=== PATIENT | female | born 2000 | race Caucasian/White ===

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

== ENCOUNTER 2019-05-04 17:15 | Emergency (ER) | payer OTHER ==
[~2019-05-04] VITALS: Ht 165.1 cm; Wt 95.5 kg
[~2019-05-04 17:15] MED LIST changes: +BENZ200C70 PO; +IBUP-1022 PO; +NORE0.353 PO
[2019-05-04] MEDS ORDERED: ZOFR4TAB16 PO (17:20)
[2019-05-04 18:23] LABS: BASO % 0.3 % (0.0-1.0); EOS # 0.1 10^3/uL (0.0-0.50); EOS % 1.5 % (0.0-3.0); HEMATOCRIT 43.5 % (36.0-47.0); HEMOGLOBIN 14.8 g/dl (12.0-15.5); LYMPH # 2.6 10^3/uL (1.5-6.5); LYMPH % 27.6 % (24.0-44.0); MEAN CORPUSCULAR HEMOGLOBIN 29.3 pg (27.0-33.0); MEAN CORPUSCULAR VOLUME 86.1 fl (80.0-96.0); MONO # 0.6 10^3/uL (0.0-0.8); MONO % 6.5 % (0.0-5.0); NEUTROPHILS % 63.8 % (36.0-66.0); PLATELET COUNT, AUTOMATED 298 10^3/uL (150-450); RED BLOOD COUNT 5.05 10^6/uL (4.00-5.40); WHITE BLOOD COUNT 9.4 10^3/uL (4.0-10.0)
[2019-05-04 18:47] LABS: ALBUMIN 4.3 GM/DL (3.2-5.2); ALT/SGPT 25 U/L (12-78); BILIRUBIN,DIRECT 0.1 MG/DL (0.0-0.2); BILIRUBIN,TOTAL 0.3 MG/DL (0.2-1.0); BLOOD UREA NITROGEN 13 MG/DL (7-18); CALCIUM LEVEL 9.4 MG/DL (8.5-10.1); CARBON DIOXIDE LEVEL 30 MEQ/L (21-32); CHLORIDE LEVEL 107 MEQ/L (98-107); GLUCOSE, FASTING 81 MG/DL (70-100); LIPASE 77 U/L (73-393); POTASSIUM SERUM 4.1 MEQ/L (3.5-5.1); SODIUM LEVEL 141 MEQ/L (136-145); TOTAL PROTEIN 7.6 GM/DL (6.4-8.2)
[2019-05-04 19:03] LABS: HCG, SERUM QUALITATIVE NEGATIVE (NEGATIVE)
--- NOTE | 2019-05-04 21:08 | REPVR ---
EXAM: US Abdomen Limited, Right Upper Quadrant EXAM DATE/TIME: 05/04/2019 8:26 PM CLINICAL HISTORY: 18 years old, female; Abdominal pain; Epigastric; Additional info: Ruq pain/vomiting TECHNIQUE: Imaging protocol: Real-time ultrasound of the abdomen with image documentation. Examination was focused on the right upper quadrant. COMPARISON: CT ABD PELVIS WITH CONTRAST 10/12/2018 11:12 PM FINDINGS: Liver: Normal. No masses. Gallbladder: Normal. No gallstones. There is no gallbladder wall thickening. Negative sonographic Arango's sign. Common bile duct: Common bile duct measures 3.4 mm Pancreas: Pancreas partially obscured by overlying valgus. Visualized segments are unremarkable. Right kidney: Right kidney measures 11.2 x 4.5 x 4.4 cm. IMPRESSION: Negative evaluation of the gallbladder. Electronically signed by: Tanner Pradhan On 05/04/2019 21:07:58 PM
[2019-05-04 21:42] VITALS: BP 133/82
[2019-05-04] MEDS ORDERED: REGL10TA6 PO (22:03)
[2019-05-04] MEDS ORDERED: METOCLOPRAMIDE 10 MG TAB PO ONE (22:15)
== END 2019-05-04 22:11 | disposition home or self-care (01) ==
LOC: M ED 17:15
DX: R10.11 Right upper quadrant pain (principal); R11.2 Nausea with vomiting, unspecified; K76.0 Fatty (change of) liver, not elsewhere classified; Z79.3 Long term (current) use of hormonal contraceptives

== ENCOUNTER 2019-07-15 01:41 | Emergency (ER) | payer OTHER ==
[~2019-07-15] VITALS: Ht 165.1 cm; Wt 95.5 kg
[~2019-07-15 01:41] MED LIST changes: +REGL10TA6 PO; +ZOFR4TAB16 PO
[2019-07-15] MEDS ORDERED: ACETAMINOPHEN 325 MG TAB As Ordered ONE (03:04)
[2019-07-15] MEDS ORDERED: ACETAMINOPHEN TAB 650MG DOSE (2X325MG) PO ONE (03:15)
[2019-07-15 05:56] VITALS: BP 135/71
--- NOTE | 2019-07-16 07:19 | REP ---
SACRUM AND COCCYX: Three views of the sacrum and coccyx are performed. There is no evidence of acute fracture, dislocation or intrinsic bone disease. IMPRESSION: No evidence of fracture or dislocation. Electronically Signed by Mac Eaton MD 07/16/2019 09:11 A
== END 2019-07-15 06:07 | disposition home or self-care (01) ==
LOC: M ED 01:41
DX: S30.0XXA Contusion of lower back and pelvis, initial encounter (principal); S90.812A Abrasion, left foot, initial encounter; V48.6XXA Car passenger injured in noncollision transport accident in traffic accident, initial encounter; Y92.410 Unspecified street and highway as the place of occurrence of the external cause; K76.0 Fatty (change of) liver, not elsewhere classified; F17.210 Nicotine dependence, cigarettes, uncomplicated; Z79.3 Long term (current) use of hormonal contraceptives

== ENCOUNTER 2020-09-16 15:46 | Emergency (ER) | payer OTHER, SELFPAY ==
[~2020-09-16] VITALS: Ht 162.6 cm; Wt 82.6 kg
[2020-09-16 15:47] VITALS: BP 124/79
[2020-09-16] MEDS ORDERED: AUGM875T28 PO (16:59)
== END 2020-09-16 17:27 | disposition home or self-care (01) ==
LOC: M ED 15:46
DX: J01.00 Acute maxillary sinusitis, unspecified (principal); Z20.828 Contact with and (suspected) exposure to other viral communicable diseases; F17.210 Nicotine dependence, cigarettes, uncomplicated

== ENCOUNTER 2021-01-18 08:28 | Emergency (ER) | payer BC, SELFPAY ==
[~2021-01-18] VITALS: Ht 162.6 cm; Wt 77.7 kg
[~2021-01-18 08:28] MED LIST changes: +AUGM875T28 PO
[2021-01-18] MEDS ORDERED: ONDANSETRON 4MG/2ML VIAL IV ONE (09:00)
[2021-01-18] MEDS ORDERED: NS 1,000 ML IV ONE (09:00)
[2021-01-18 09:39] LABS: BASO # 0.1 10^3/uL (0.0-0.2); BASO % 0.5 % (0.0-1.0); EOS # 0.3 10^3/uL (0.0-0.5); EOS % 1.6 % (0.0-3.0); HEMOGLOBIN 15.5 g/dl (12.0-15.5); LYMPH # 2.3 10^3/uL (1.5-5.0); LYMPH % 11.1 % (24.0-44.0); MEAN CORPUSCULAR HEMOGLOBIN 28.5 pg (27.0-33.0); MEAN CORPUSCULAR HGB CONC 33.7 g/dl (32.0-36.5); MEAN CORPUSCULAR VOLUME 84.6 fl (80.0-96.0); MONO # 0.8 10^3/uL (0.0-0.8); MONO % 3.8 % (2.0-8.0); NEUTROPHILS # 17.1 10^3/uL (1.5-8.5); NEUTROPHILS % 82.4 % (36.0-66.0); PLATELET COUNT, AUTOMATED 445 10^3/uL (150-450); RED BLOOD COUNT 5.44 10^6/uL (4.00-5.40); WHITE BLOOD COUNT 20.7 10^3/uL (4.0-10.0)
[2021-01-18 10:08] LABS: ALBUMIN 4.9 GM/DL (3.2-5.2); ALT/SGPT 21 U/L (12-78); AMYLASE 78 U/L (25-115); BILIRUBIN,DIRECT 0.2 MG/DL (0.0-0.2); BILIRUBIN,TOTAL 0.6 MG/DL (0.2-1.0); CK-MB VALUE MASS 3.2 NG/ML (<3.6); CPK CREATINE PHOSPHOKINASE 220 U/L (26-192); LIPASE 83 U/L (73-393); MB/CK RELATIVE INDEX 1.45 (< OR =4); TOTAL PROTEIN 8.2 GM/DL (6.4-8.2); TROPONIN I < 0.02 NG/ML (< 0.10)
[2021-01-18 10:12] LABS: RSV AMPLIFICATION NEGATIVE (NEGATIVE)
[2021-01-18 10:18] VITALS: O2SAT 100
--- NOTE | 2021-01-18 10:41 | REP ---
INDICATION: Abdominal Pain. COMPARISON: Comparison radiograph 07/15/2019.. TECHNIQUE: Four views including upright chest. FINDINGS: Upright chest radiograph is unremarkable. There is no evidence of infiltrate or free subdiaphragmatic air. Heart size is normal. Pulmonary vasculature is not increased. Pleural angles are sharp. Supine and erect views of the abdomen demonstrate a normal bowel gas pattern. The psoas margins and the flank stripes are intact. There is no evidence of mass, organomegaly, or pathologic calcification. IMPRESSION: Negative acute abdominal series. <Electronically signed by Mando Orozco > 01/18/21 [id number]
[2021-01-18 11:04] LABS: AMPHETAMINES LEVEL URINE NEGATIVE (NEGATIVE); BARBITURATES URINE NEGATIVE (NEGATIVE); BENZODIAZEPINES URINE NEGATIVE (NEGATIVE); CANNABINOIDS URINE POSITIVE (NEGATIVE); COCAINE METABOLITE URINE NEGATIVE (NEGATIVE); METHADONE URINE NEGATIVE (NEGATIVE); OPIATES URINE NEGATIVE (NEGATIVE); PHENCYCLIDINE URINE NEGATIVE (NEGATIVE)
[2021-01-18] MEDS ORDERED: GI COCKTAIL 50ML BTL(HYOSCYAMINE/MAALOX/LIDOCAINE VISCOUS)(1:3:1) PO ONE (11:45)
[2021-01-18] MEDS ORDERED: METOCLOPRAMIDE INJ 10MG/2ML VIAL (J2765 PER 1) IV ONE (12:05)
[2021-01-18 13:36] VITALS: BP 130/88
--- NOTE | 2021-01-19 19:48 | ECGEPIP ---
[facility] - ED Test Date: 2021-01-18 Pat Name: JEAN CARLOS FUNEZ Department: Room: - Gender: Female [employer]: MATT : 2000 Requested By: SIMON Villafana PA-C Order Number: [id number] Reading MD: Elissa Aguaoy Measurements Intervals [place] Rate: 53 P: 63 OK: 170 QRS: 50 QRSD: 84 T: 58 QT: 504 QTc: 472 Interpretive Statements Sinus bradycardia with marked sinus arrhythmia No prior Electronically Signed on 01-19-2021 19:48:37 EDT by Elissa Aguayo
== END 2021-01-18 13:41 | disposition home or self-care (01) ==
LOC: M ED 08:28
DX: F12.188 Cannabis abuse with other cannabis-induced disorder (principal); R11.10 Vomiting, unspecified; D72.829 Elevated white blood cell count, unspecified; F17.200 Nicotine dependence, unspecified, uncomplicated; K76.0 Fatty (change of) liver, not elsewhere classified
CPT/HCPCS: 74021; 80047; 80076; 80307; 81001; 82150; 82550; 82553; 83690; 84484; 84702; 85025; 87631; 93005; 96361; 96374; 96375; 99284; J2405; J2765

== ENCOUNTER → 2021-03-09 | Outpatient (REF) | payer BC ==
[2021-03-09 15:59] LABS: ALBUMIN 4.4 GM/DL (3.2-5.2); ALT/SGPT 15 U/L (12-78); BILIRUBIN,TOTAL 0.7 MG/DL (0.2-1.0); BLOOD UREA NITROGEN 11 MG/DL (7-18); CALCIUM LEVEL 9.2 MG/DL (8.5-10.1); CARBON DIOXIDE LEVEL 29 MEQ/L (21-32); CHLORIDE LEVEL 108 MEQ/L (98-107); CHOLESTEROL LEVEL 154 MG/DL (<200); CHOLESTEROL RISK RATIO 3.666 (<5); CREATININE FOR GFR 0.66 MG/DL (0.55-1.30); GLOMERULAR FILTRATION RATE > 60.0 (>60); GLUCOSE, FASTING 80 MG/DL (70-100); HDL CHOLESTEROL 42 MG/DL (>40); HEMOGLOBIN A1c 5.3 %; LDL CHOLESTEROL 77 MG/DL (<100); NON-HDL-C 112 MG/DL; POTASSIUM SERUM 4.4 MEQ/L (3.5-5.1); SODIUM LEVEL 141 MEQ/L (136-145); TOTAL PROTEIN 7.5 GM/DL (6.4-8.2); TRIGLYCERIDES LEVEL 177 MG/DL (<150)
[2021-03-09 16:07] LABS: TOTAL 25(OH) VITAMIN D 22.4 NG/ML (30.0-100.0)
== END ==
LOC: M SFHCPLAZ 12:42
PROVIDERS: ATTEND Nurse Practitioner Family
DX: K76.0 Fatty (change of) liver, not elsewhere classified (principal); Z83.3 Family history of diabetes mellitus; Z13.220 Encounter for screening for lipoid disorders; Z13.21 Encounter for screening for nutritional disorder

== ENCOUNTER → 2022-02-09 | Outpatient (CLI) | payer BC, SELFPAY | LOC: M RAD 08:43 | PROVIDERS: ATTEND Physician Assistant Medical | DX: R10.2 Pelvic and perineal pain (principal); N93.8 Other specified abnormal uterine and vaginal bleeding ==

== ENCOUNTER 2022-03-02 05:07 | Emergency (ER) | payer BC ==
[~2022-03-02] VITALS: Ht 162.6 cm; Wt 71.2 kg
[2022-03-02] MEDS ORDERED: ONDANSETRON 4MG/2ML VIAL IV ONE (06:00)
[2022-03-02] MEDS ORDERED: HALOPERIDOL 5MG/ML VIAL (J1630 PER 1) IV ONE (06:50)
[2022-03-02 07:10] LABS: BASO # 0.1 10^3/uL (0.0-0.2); BASO % 0.4 % (0.0-1.0); EOS # 0.1 10^3/uL (0.0-0.5); EOS % 0.2 % (0.0-3.0); HEMATOCRIT 51.2 % (36.0-47.0); HEMOGLOBIN 17.5 g/dl (12.0-15.5); LYMPH # 2.2 10^3/uL (1.5-5.0); LYMPH % 8.7 % (24.0-44.0); MEAN CORPUSCULAR HGB CONC 34.2 g/dl (32.0-36.5); MEAN CORPUSCULAR VOLUME 87.8 fl (80.0-96.0); MONO # 1.1 10^3/uL (0.0-0.8); MONO % 4.4 % (2.0-8.0); NEUTROPHILS # 21.5 10^3/uL (1.5-8.5); NEUTROPHILS % 85.7 % (36.0-66.0); PLATELET COUNT, AUTOMATED 496 10^3/uL (150-450); RED BLOOD COUNT 5.83 10^6/uL (4.00-5.40); WHITE BLOOD COUNT 25.1 10^3/uL (4.0-10.0)
[2022-03-02 07:15] LABS: ALBUMIN 4.6 GM/DL (3.2-5.2); ALT/SGPT 33 U/L (12-78); BILIRUBIN,DIRECT 0.2 MG/DL (0.0-0.2); BLOOD UREA NITROGEN 9 MG/DL (7-18); CALCIUM LEVEL 9.4 MG/DL (8.5-10.1); CARBON DIOXIDE LEVEL 21 MEQ/L (21-32); CHLORIDE LEVEL 108 MEQ/L (98-107); GLOMERULAR FILTRATION RATE > 60.0 (>60); GLUCOSE, FASTING 167 MG/DL (70-100); POTASSIUM SERUM 3.5 MEQ/L (3.5-5.1); SODIUM LEVEL 141 MEQ/L (136-145); TOTAL PROTEIN 8.2 GM/DL (6.4-8.2)
[2022-03-02 07:33] LABS: HCG, SERUM QUALITATIVE NEGATIVE (NEGATIVE)
[2022-03-02] MEDS ORDERED: NS 1,000 ML IV ONE ×2 (07:45)
[2022-03-02] MEDS ORDERED: MAALOX 30 ML SUSP *UDC PO ONE (08:05)
[2022-03-02] MEDS ORDERED: ONDA-83 PO (08:24)
[2022-03-02 08:45] VITALS: BP 124/85
== END 2022-03-02 09:04 | disposition home or self-care (01) ==
LOC: M ED 05:07
DX: R19.7 Diarrhea, unspecified (principal); R11.10 Vomiting, unspecified; L55.9 Sunburn, unspecified
CPT/HCPCS: 80048; 80076; 84702; 84703; 85025; 87486; 87581; 87633; 87798; 96361; 96374; 96375; 99284; J1630; J2405

== ENCOUNTER 2022-04-20 14:57 | Emergency (ER) | payer BC ==
[~2022-04-20] VITALS: Ht 165.1 cm; Wt 72.7 kg
[2022-04-20 14:57] VITALS: BP 131/97
[~2022-04-20 14:57] MED LIST changes: +ONDA-83 PO
== END 2022-04-20 16:45 | disposition left against medical advice (07) ==
LOC: M ED 14:57
DX: Z53.21 Procedure and treatment not carried out due to patient leaving prior to being seen by health care provider (principal)

== ENCOUNTER → 2022-08-16 | Outpatient (CLI) | payer BC | LOC: M WHC 06:39 | PROVIDERS: ATTEND Physician Assistant Medical | DX: R10.2 Pelvic and perineal pain (principal); N94.12 Deep dyspareunia ==

== ENCOUNTER 2022-10-13 11:18 | Emergency (ER) | payer BC ==
[~2022-10-13] VITALS: Ht 162.6 cm; Wt 72.3 kg
[2022-10-13] MEDS ORDERED: ONDA-84 PO (11:25)
[2022-10-13] MEDS ORDERED: NS 1,000 ML IV ONE (12:00)
[2022-10-13] MEDS ORDERED: METOCLOPRAMIDE INJ 10MG/2ML VIAL IV ONE (12:00)
[2022-10-13] MEDS ORDERED: PROMETHAZINE 25MG/ML 1ML VIAL IV ONE (12:25)
[2022-10-13 12:28] LABS: BASO # 0.1 10^3/uL (0.0-0.2); BASO % 0.3 % (0.0-1.0); EOS # 0.1 10^3/uL (0.0-0.5); EOS % 0.6 % (0.0-3.0); HEMATOCRIT 43.2 % (36.0-47.0); HEMOGLOBIN 14.8 g/dl (12.0-15.5); LYMPH # 2.7 10^3/uL (1.5-5.0); LYMPH % 15.9 % (24.0-44.0); MEAN CORPUSCULAR HEMOGLOBIN 29.7 pg (27.0-33.0); MEAN CORPUSCULAR HGB CONC 34.3 g/dl (32.0-36.5); MEAN CORPUSCULAR VOLUME 86.7 fl (80.0-96.0); MONO # 0.7 10^3/uL (0.0-0.8); NEUTROPHILS # 13.5 10^3/uL (1.5-8.5); NEUTROPHILS % 78.8 % (36.0-66.0); PLATELET COUNT, AUTOMATED 379 10^3/uL (150-450); RED BLOOD COUNT 4.98 10^6/uL (4.00-5.40); WHITE BLOOD COUNT 17.1 10^3/uL (4.0-10.0)
[2022-10-13 12:48] LABS: LIPASE 25 U/L (12-53)
[2022-10-13 12:49] LABS: BILIRUBIN,DIRECT 0.3 MG/DL (<0.4)
[2022-10-13 12:50] LABS: ALBUMIN 4.8 G/DL (3.2-5.2); ALKALINE PHOSPHATASE 54 U/L (46-116); ALT/SGPT 23 U/L (7.0-40); AST/SGOT 26 U/L (<34); BILIRUBIN,TOTAL 0.9 MG/DL (0.3-1.2); BLOOD UREA NITROGEN 7 MG/DL (9-23); CALCIUM LEVEL 10.1 MG/DL (8.5-10.1); CARBON DIOXIDE LEVEL 19 MMOL/L (20-31); CHLORIDE LEVEL 104 MMOL/L (98-107); CREATININE FOR GFR 0.55 MG/DL (0.55-1.30); GLOMERULAR FILTRATION RATE > 60.0 (>60); GLUCOSE, FASTING 130 MG/DL (60-100); SODIUM LEVEL 140 MMOL/L (136-145); TOTAL PROTEIN 7.4 G/DL (5.7-8.2)
[2022-10-13 13:12] LABS: HCG, SERUM QUANTITATIVE 89217.2 MIU/ML (<4.2)
[2022-10-13] MEDS ORDERED: ONDANSETRON 4MG 2ML VIAL IV ONE (14:25)
[2022-10-13] MEDS ORDERED: CALCIUM CARBONATE 500 MG CHEW U/D PO ONE (16:00)
[2022-10-13] MEDS ORDERED: PROM1SUP2 PR (16:09)
[2022-10-13 16:31] VITALS: BP 121/70
[2022-10-14] MEDS ORDERED: DICL10TA PO (13:41)
== END 2022-10-13 16:33 | disposition home or self-care (01) ==
LOC: M ED 11:18
DX: O26.91 Pregnancy related conditions, unspecified, first trimester (principal); O21.8 Other vomiting complicating pregnancy; O99.321 Drug use complicating pregnancy, first trimester; O99.331 Smoking (tobacco) complicating pregnancy, first trimester; Z3A.01 Less than 8 weeks gestation of pregnancy
CPT/HCPCS: 76801; 76817; 80048; 80076; 83690; 84702; 85025; 86850; 86900; 86901; 87428; 96361; 96374; 96375; 99284; J2405; J2550; J2765

== ENCOUNTER 2022-10-14 05:15 | Emergency (ER) | payer BC ==
[~2022-10-14] VITALS: Ht 162.6 cm; Wt 69.8 kg
[~2022-10-14 05:15] MED LIST changes: +ONDA-84 PO; +PROM1SUP2 PR
[2022-10-14 06:01] LABS: BASO # 0.1 10^3/uL (0.0-0.2); BASO % 0.2 % (0.0-1.0); HEMATOCRIT 40.4 % (36.0-47.0); HEMOGLOBIN 14.4 g/dl (12.0-15.5); LYMPH # 1.7 10^3/uL (1.5-5.0); LYMPH % 5.8 % (24.0-44.0); MEAN CORPUSCULAR HGB CONC 35.6 g/dl (32.0-36.5); MEAN CORPUSCULAR VOLUME 84.2 fl (80.0-96.0); MONO % 3.2 % (2.0-8.0); PLATELET COUNT, AUTOMATED 389 10^3/uL (150-450)
[2022-10-14 06:46] LABS: LIPASE 24 U/L (12-53)
[2022-10-14 06:48] LABS: BILIRUBIN,DIRECT 0.4 MG/DL (<0.4)
[2022-10-14 07:04] LABS: ALBUMIN 5.1 G/DL (3.2-5.2); ALKALINE PHOSPHATASE 55 U/L (46-116); ALT/SGPT 23 U/L (7.0-40); AST/SGOT 27 U/L (<34); BLOOD UREA NITROGEN 8 MG/DL (9-23); CALCIUM LEVEL 10.2 MG/DL (8.5-10.1); CARBON DIOXIDE LEVEL 16 MMOL/L (20-31); CHLORIDE LEVEL 102 MMOL/L (98-107); CREATININE FOR GFR 0.52 MG/DL (0.55-1.30); GLOMERULAR FILTRATION RATE > 60.0 (>60); GLUCOSE, FASTING 120 MG/DL (60-100); HCG, SERUM QUANTITATIVE 98034.4 MIU/ML (<4.2); POTASSIUM SERUM 3.6 MMOL/L (3.5-5.1); SODIUM LEVEL 137 MMOL/L (136-145); TOTAL PROTEIN 7.8 G/DL (5.7-8.2)
[2022-10-14] MEDS ORDERED: NS 1,000 ML IV ONE ×2 (07:40→11:35)
[2022-10-14] MEDS ORDERED: ACETAMINOPHEN 1000MG 100ML IV BAG IV ONE (07:40)
[2022-10-14] MEDS ORDERED: PROMETHAZINE 25MG/ML 1ML VIAL IV ONE (07:40)
[2022-10-14] MEDS ORDERED: ONDANSETRON 4MG 2ML VIAL IV ONE (09:25)
[2022-10-14] MEDS ORDERED: FAMOTIDINE 20MG/2ML VIAL IVP ONE (09:40)
[2022-10-14] MEDS ORDERED: GI COCKTAIL 50ML BTL(HYOSCYAMINE/MAALOX/LIDOCAINE VISCOUS)(1:3:1) PO ONE (09:40)
[2022-10-14 11:14] LABS: AMPHETAMINES LEVEL URINE NEGATIVE (NEGATIVE); BARBITURATES URINE NEGATIVE (NEGATIVE); BENZODIAZEPINES URINE NEGATIVE (NEGATIVE); COCAINE METABOLITE URINE NEGATIVE (NEGATIVE); METHADONE URINE NEGATIVE (NEGATIVE); OPIATES URINE NEGATIVE (NEGATIVE); PHENCYCLIDINE URINE NEGATIVE (NEGATIVE)
[2022-10-14 11:17] LABS: CANNABINOIDS URINE POSITIVE (NEGATIVE)
[2022-10-14] MEDS ORDERED: PYRIDOXINE 50 MG TAB PO ONE (11:35)
[2022-10-14] MEDS ORDERED: DICL10TA PO (13:41)
[2022-10-14 13:56] VITALS: BP 108/58
[2022-10-15] MEDS ORDERED: PREN1CHW PO (16:53)
== END 2022-10-14 15:14 | disposition home or self-care (01) ==
LOC: M ED 05:15
DX: O21.9 Vomiting of pregnancy, unspecified (principal); O99.321 Drug use complicating pregnancy, first trimester; O26.611 Liver and biliary tract disorders in pregnancy, first trimester; Z3A.08 8 weeks gestation of pregnancy
CPT/HCPCS: 74181; 80048; 80076; 80307; 81002; 83605; 83690; 84702; 85025; 87880; 99284; J0131; J2405; J2550

== ENCOUNTER 2022-10-15 09:09 | Inpatient (IN) | payer BC ==
[~2022-10-15] VITALS: Ht 162.6 cm; Wt 71.3 kg
[~2022-10-15 09:09] MED LIST changes: +DICL10TA PO
[2022-10-15] MEDS ORDERED: GI COCKTAIL 50ML BTL(HYOSCYAMINE/MAALOX/LIDOCAINE VISCOUS)(1:3:1) PO ONE (11:30)
[2022-10-15] MEDS ORDERED: NS 1,000 ML IV ONE (11:30)
[2022-10-15] MEDS ORDERED: PROMETHAZINE 25MG/ML 1ML VIAL IV ONE (11:30)
[2022-10-15] MEDS ORDERED: OMEPRAZOLE 20MG CAP PO ONE (11:35)
[2022-10-15 12:00] LABS: BASO % 0.1 % (0.0-1.0); EOS # 0.1 10^3/uL (0.0-0.5); EOS % 0.4 % (0.0-3.0); HEMATOCRIT 39.2 % (36.0-47.0); HEMOGLOBIN 13.3 g/dl (12.0-15.5); LYMPH # 1.7 10^3/uL (1.5-5.0); LYMPH % 10.6 % (24.0-44.0); MEAN CORPUSCULAR HEMOGLOBIN 29.6 pg (27.0-33.0); MEAN CORPUSCULAR HGB CONC 33.9 g/dl (32.0-36.5); MEAN CORPUSCULAR VOLUME 87.3 fl (80.0-96.0); MONO % 6.2 % (2.0-8.0); NEUTROPHILS # 13.5 10^3/uL (1.5-8.5); NEUTROPHILS % 82.1 % (36.0-66.0); PLATELET COUNT, AUTOMATED 232 10^3/uL (150-450); RED BLOOD COUNT 4.49 10^6/uL (4.00-5.40); WHITE BLOOD COUNT 16.4 10^3/uL (4.0-10.0)
[2022-10-15 14:50] VITALS: BP 121/72
[2022-10-15] MEDS ORDERED: MULTIVITAMIN -ADULT INJECTION 10 ML, THIAMINE INJection 100 MG, FOLIC ACID 1 MG in NS 1... IV ONE (14:55)
[2022-10-15] MEDS ORDERED: ONDANSETRON 4MG 2ML VIAL IV ONE (16:05)
[2022-10-15 16:35] LABS: RSV AMPLIFICATION NEGATIVE (NEGATIVE)
[2022-10-15] MEDS ORDERED: PREN1CHW PO (16:53)
[2022-10-15] MEDS ORDERED: HOME MED LIST COMPLETE! XX SCH (17:00)
[2022-10-15] MEDS: METOCLOPRAMIDE INJ 10MG/2ML VIAL IV SCH (17:20)
[2022-10-15] MEDS: diphenhydrAMINE 50MG/ML VIAL IV SCH (17:49)
[2022-10-15 17:50] VITALS: BP 134/82
[2022-10-15] MEDS: ONDANSETRON 4MG 2ML VIAL IV PRN (17:50)
[2022-10-15] MEDS: DOCUSATE SODIUM 100MG CAPSULE PO SCH (21:00)
[2022-10-15] MEDS: PROMETHAZINE 25MG/ML 1ML VIAL IV PRN (22:21)
[2022-10-16] MEDS: diphenhydrAMINE 50MG/ML VIAL IV SCH ×3 (00:36→13:30)
[2022-10-16] MEDS: ONDANSETRON 4MG 2ML VIAL IV PRN ×2 (00:36→06:28)
[2022-10-16] MEDS: NS 1,000 ML IV SCH ×2 (02:27→11:30)
[2022-10-16] MEDS: METOCLOPRAMIDE INJ 10MG/2ML VIAL IV SCH ×3 (02:27→10:14)
[2022-10-16 06:00] VITALS: BP 126/71
[2022-10-16] MEDS: PROMETHAZINE 25MG/ML 1ML VIAL IV PRN ×2 (06:29→13:30)
[2022-10-16] MEDS ORDERED: CALCIUM CARBONATE 500 MG CHEW U/D PO PRN (08:05)
[2022-10-16] MEDS ORDERED: OMEPRAZOLE 20MG CAP PO SCH (09:00)
[2022-10-16] MEDS: KCL 10MEQ/100ML SWI (KRUN) 10 MEQ in IV 1 EA IV SCH ×2 (10:09→10:10)
[2022-10-16] MEDS: DOCUSATE SODIUM 100MG CAPSULE PO SCH (10:15)
[2022-10-16 13:15] LABS: FREE T3 3.2 PG/ML (2.3-4.2); FREE T4 1.47 NG/DL (0.89-1.76); THYROID STIMULATING HORMONE 0.265 uIU/ML (0.55-4.78)
[2022-10-16 13:18] LABS: BLOOD UREA NITROGEN < 5 MG/DL (9-23); CALCIUM LEVEL 8.1 MG/DL (8.5-10.1); CARBON DIOXIDE LEVEL 17 MMOL/L (20-31); CHLORIDE LEVEL 105 MMOL/L (98-107); CREATININE FOR GFR 0.41 MG/DL (0.55-1.30); GLOMERULAR FILTRATION RATE > 60.0 (>60); GLUCOSE, FASTING 88 MG/DL (60-100); POTASSIUM SERUM 3.2 MMOL/L (3.5-5.1); SODIUM LEVEL 135 MMOL/L (136-145)
[2022-10-16 14:30] VITALS: BP 144/99
[2022-10-16] MEDS ORDERED: NEXI40CA PO (15:49)
== END 2022-10-16 17:00 | disposition home or self-care (01) | DRG 566 ==
LOC: M ED 09:09 → M ED INP 15:35 → ENRESERV 16:59 → M OBS 17:00
PROVIDERS: ADMIT Advanced Practice Midwife; ATTEND Advanced Practice Midwife
DX: O21.0 Mild hyperemesis gravidarum (principal); K21.9 Gastro-esophageal reflux disease without esophagitis; Z3A.08 8 weeks gestation of pregnancy; O99.611 Diseases of the digestive system complicating pregnancy, first trimester

== ENCOUNTER → 2022-10-20 | Outpatient (CLI) | payer BC ==
[~2022-10-20] MED LIST changes: +NEXI40CA PO; +PREN1CHW PO
[2022-10-20 17:21] LABS: HEMATOCRIT 42.4 % (36.0-47.0); HEMOGLOBIN 14.6 g/dl (12.0-15.5); MEAN CORPUSCULAR HEMOGLOBIN 30.3 pg (27.0-33.0); MEAN CORPUSCULAR HGB CONC 34.4 g/dl (32.0-36.5); PLATELET COUNT, AUTOMATED 284 10^3/uL (150-450); RED BLOOD COUNT 4.82 10^6/uL (4.00-5.40); WHITE BLOOD COUNT 11.6 10^3/uL (4.0-10.0)
[2022-10-20 18:15] LABS: HIV 1&2 SCREEN CENTAUR NEGATIVE (NEGATIVE)
[2022-10-20 18:22] LABS: HEPATITIS C VIRUS ABY INDEX 0.1 INDEX (<0.8)
[2022-10-20 18:42] LABS: GC DNA AMPLIFICATION NEGATIVE (NEGATIVE)
== END ==
LOC: M PLALAB 16:03
PROVIDERS: ATTEND Advanced Practice Midwife
DX: Z36.89 Encounter for other specified antenatal screening (principal)

== ENCOUNTER 2022-11-09 08:29 | Inpatient (IN) | payer BC, MEDICAID, SELFPAY ==
[~2022-11-09] VITALS: Ht 162.6 cm; Wt 71.6 kg
[2022-11-09 10:46] LABS: BASO % 0.2 % (0.0-1.0); EOS % 0.1 % (0.0-3.0); HEMATOCRIT 41.4 % (36.0-47.0); HEMOGLOBIN 14.1 g/dl (12.0-15.5); LYMPH # 1.6 10^3/uL (1.5-5.0); LYMPH % 6.9 % (24.0-44.0); MEAN CORPUSCULAR HEMOGLOBIN 29.7 pg (27.0-33.0); MEAN CORPUSCULAR HGB CONC 34.1 g/dl (32.0-36.5); MEAN CORPUSCULAR VOLUME 87.2 fl (80.0-96.0); MONO # 0.5 10^3/uL (0.0-0.8); MONO % 2.3 % (2.0-8.0); NEUTROPHILS # 20.5 10^3/uL (1.5-8.5); NEUTROPHILS % 89.9 % (36.0-66.0); PLATELET COUNT, AUTOMATED 405 10^3/uL (150-450); RED BLOOD COUNT 4.75 10^6/uL (4.00-5.40); WHITE BLOOD COUNT 22.8 10^3/uL (4.0-10.0)
[2022-11-09] MEDS ORDERED: PROMETHAZINE 25MG/ML 1ML VIAL IV ONE (11:15)
[2022-11-09] MEDS ORDERED: MULTIVITAMIN -ADULT INJECTION 10 ML, THIAMINE INJection 100 MG, FOLIC ACID 1 MG in NS 1... IV ONE (11:15)
[2022-11-09] MEDS ORDERED: NS 500 ML IV ONE ×2 (11:15→12:45)
[2022-11-09 11:17] LABS: BILIRUBIN,DIRECT 0.2 MG/DL (<0.4)
[2022-11-09 11:19] LABS: HCG, SERUM QUALITATIVE POSITIVE (NEGATIVE)
[2022-11-09 11:21] LABS: ALBUMIN 4.5 G/DL (3.2-5.2); ALKALINE PHOSPHATASE 36 U/L (46-116); ALT/SGPT 22 U/L (7.0-40); AST/SGOT 60 U/L (<34); BILIRUBIN,TOTAL 0.8 MG/DL (0.3-1.2); BLOOD UREA NITROGEN 9 MG/DL (9-23); CALCIUM LEVEL 9.7 MG/DL (8.5-10.1); CARBON DIOXIDE LEVEL 20 MMOL/L (20-31); CHLORIDE LEVEL 102 MMOL/L (98-107); CREATININE FOR GFR 0.55 MG/DL (0.55-1.30); GLOMERULAR FILTRATION RATE > 60.0 (>60); GLUCOSE, FASTING 176 MG/DL (60-100); LIPASE 39 U/L (12-53); POTASSIUM SERUM 5.6 MMOL/L (3.5-5.1); SODIUM LEVEL 138 MMOL/L (136-145); TOTAL PROTEIN 7.4 G/DL (5.7-8.2)
[2022-11-09] MEDS ORDERED: PROCHLORPERAZINE 25MG SUPP PR ONE ×2 (12:55→16:05)
[2022-11-09] MEDS ORDERED: ONDANSETRON 4MG ORAL DISINTEGRATING TAB PO ONE (13:05)
[2022-11-09 13:19] LABS: RSV AMPLIFICATION NEGATIVE (NEGATIVE)
[2022-11-09 13:46] LABS: AMPHETAMINES LEVEL URINE NEGATIVE (NEGATIVE); BARBITURATES URINE NEGATIVE (NEGATIVE); BENZODIAZEPINES URINE NEGATIVE (NEGATIVE); COCAINE METABOLITE URINE NEGATIVE (NEGATIVE); PHENCYCLIDINE URINE NEGATIVE (NEGATIVE)
[2022-11-09 13:47] LABS: METHADONE URINE NEGATIVE (NEGATIVE); OPIATES URINE NEGATIVE (NEGATIVE)
[2022-11-09 13:51] LABS: CANNABINOIDS URINE POSITIVE (NEGATIVE)
[2022-11-09 14:33] LABS: HEMOGLOBIN A1c 4.5 % (4.0-6.0)
[2022-11-09 14:55] LABS: MAGNESIUM LEVEL 1.7 MG/DL (1.8-2.4)
[2022-11-09] MEDS ORDERED: PROM25SU3 PR (15:57)
[2022-11-09] MEDS: LR 1,000 ML IV SCH (17:20)
[2022-11-09] MEDS: PROMETHAZINE 25MG/ML 1ML VIAL IV SCH ×2 (17:20→22:39)
[2022-11-09] MEDS ORDERED: ACET-897 PO (18:47)
[2022-11-09] MEDS ORDERED: ONDA4TAB6 PO (18:47)
[2022-11-09] MEDS ORDERED: HOME MED LIST COMPLETE! XX SCH (18:50)
[2022-11-09] MEDS: ONDANSETRON 4MG 2ML VIAL IV SCH (19:43)
[2022-11-09 20:10] VITALS: BP 132/78
[2022-11-09] MEDS: CALCIUM CARBONATE 500 MG CHEW U/D PO PRN (20:49)
[2022-11-10] VITALS: BP 140/82
[2022-11-10] MEDS: ONDANSETRON 4MG 2ML VIAL IV SCH ×4 (01:54→19:49)
[2022-11-10] MEDS: LR 1,000 ML IV SCH ×3 (01:55→17:13)
[2022-11-10 04:00] VITALS: BP 132/84
[2022-11-10] MEDS: PROMETHAZINE 25MG/ML 1ML VIAL IV SCH ×4 (04:35→22:33)
[2022-11-10 08:00] VITALS: BP 135/82
[2022-11-10] MEDS: CALCIUM CARBONATE 500 MG CHEW U/D PO PRN ×3 (08:09→22:05)
[2022-11-10 12:00] VITALS: BP 115/57
[2022-11-10 16:00] VITALS: BP 116/56
[2022-11-10 20:00] VITALS: BP 122/69
[2022-11-11] MEDS: ONDANSETRON 4MG 2ML VIAL IV SCH ×2 (01:26→08:11)
[2022-11-11] MEDS: LR 1,000 ML IV SCH ×3 (01:26→16:56)
[2022-11-11] MEDS: CALCIUM CARBONATE 500 MG CHEW U/D PO PRN ×2 (03:20→12:59)
[2022-11-11 04:00] VITALS: BP 135/86
[2022-11-11] MEDS: PROMETHAZINE 25MG/ML 1ML VIAL IV SCH ×4 (04:57→23:15)
[2022-11-11 08:00] VITALS: BP 125/79
[2022-11-11] MEDS ORDERED: SCOPOLAMINE 1MG TRANSDERMAL PATCH TOP SCH (09:00)
[2022-11-11] MEDS: METOCLOPRAMIDE INJ 10MG/2ML VIAL IV SCH ×2 (13:39→22:06)
[2022-11-11] MEDS ORDERED: PANTOPRAZOLE 20 MG TAB PO ONE (14:00)
[2022-11-11 14:28] LABS: HEMATOCRIT 38.9 % (36.0-47.0); HEMOGLOBIN 13.5 g/dl (12.0-15.5); MEAN CORPUSCULAR HEMOGLOBIN 30.1 pg (27.0-33.0); MEAN CORPUSCULAR HGB CONC 34.7 g/dl (32.0-36.5); MEAN CORPUSCULAR VOLUME 86.8 fl (80.0-96.0); PLATELET COUNT, AUTOMATED 254 10^3/uL (150-450); RED BLOOD COUNT 4.48 10^6/uL (4.00-5.40); WHITE BLOOD COUNT 11.5 10^3/uL (4.0-10.0)
[2022-11-11 14:57] LABS: ACETONE/KETONE 1.5 MMOL/L (0.02-0.27)
[2022-11-11 15:27] LABS: ALBUMIN 3.9 G/DL (3.2-5.2); ALKALINE PHOSPHATASE 39 U/L (46-116); ALT/SGPT 19 U/L (7.0-40); AST/SGOT 19 U/L (<34); BILIRUBIN,TOTAL 0.9 MG/DL (0.3-1.2); BLOOD UREA NITROGEN < 5 MG/DL (9-23); CALCIUM LEVEL 9.3 MG/DL (8.5-10.1); CARBON DIOXIDE LEVEL 20 MMOL/L (20-31); CHLORIDE LEVEL 105 MMOL/L (98-107); CREATININE FOR GFR 0.43 MG/DL (0.55-1.30); GLOMERULAR FILTRATION RATE > 60.0 (>60); GLUCOSE, FASTING 77 MG/DL (60-100); POTASSIUM SERUM 3.1 MMOL/L (3.5-5.1); SODIUM LEVEL 139 MMOL/L (136-145); TOTAL PROTEIN 6.4 G/DL (5.7-8.2)
[2022-11-11 17:00] VITALS: BP 104/62
[2022-11-11 20:00] VITALS: BP 115/56
[2022-11-12 04:00] VITALS: BP 117/73
[2022-11-12] MEDS: ONDANSETRON 4MG 2ML VIAL IV PRN ×2 (04:02→12:04)
[2022-11-12] MEDS: LR 1,000 ML IV SCH ×3 (04:04→17:00)
[2022-11-12] MEDS: PROMETHAZINE 25MG/ML 1ML VIAL IV SCH ×4 (05:02→22:14)
[2022-11-12] MEDS: METOCLOPRAMIDE INJ 10MG/2ML VIAL IV SCH ×2 (06:02→14:13)
[2022-11-12 08:00] VITALS: BP 129/89
[2022-11-12] MEDS: CALCIUM CARBONATE 500 MG CHEW U/D PO PRN (09:23)
[2022-11-12 13:00] VITALS: BP 134/69
[2022-11-12 14:34] LABS: LIPASE 21 U/L (12-53)
[2022-11-12 14:45] LABS: ALBUMIN 3.6 G/DL (3.2-5.2); ALKALINE PHOSPHATASE 35 U/L (46-116); ALT/SGPT 47 U/L (7.0-40); AST/SGOT 33 U/L (<34); BILIRUBIN,TOTAL 1.2 MG/DL (0.3-1.2); BLOOD UREA NITROGEN < 5 MG/DL (9-23); CALCIUM LEVEL 8.4 MG/DL (8.5-10.1); CARBON DIOXIDE LEVEL 20 MMOL/L (20-31); CHLORIDE LEVEL 105 MMOL/L (98-107); CREATININE FOR GFR 0.43 MG/DL (0.55-1.30); GLOMERULAR FILTRATION RATE > 60.0 (>60); GLUCOSE, FASTING 79 MG/DL (60-100); POTASSIUM SERUM 2.9 MMOL/L (3.5-5.1); SODIUM LEVEL 138 MMOL/L (136-145); TOTAL PROTEIN 5.8 G/DL (5.7-8.2)
[2022-11-12] MEDS: KCL 10MEQ/100ML SWI (KRUN) 10 MEQ in IV 1 EA IV SCH ×4 (15:29→20:46)
[2022-11-12] MEDS ORDERED: PROCHLORPERAZINE 10MG 2ML VIAL IV PRN (16:55)
[2022-11-12] MEDS ORDERED: MULTIVITAMIN -ADULT INJECTION 10 ML, THIAMINE INJection 100 MG, FOLIC ACID 1 MG in NS 1... IV ONE (17:00)
[2022-11-12] MEDS: diphenhydrAMINE 50MG/ML VIAL IV SCH ×2 (17:05→20:46)
[2022-11-12 17:30] VITALS: BP 110/54
[2022-11-12 20:00] VITALS: BP 99/56
[2022-11-12] MEDS ORDERED: PANTOPRAZOLE 40MG VIAL IV SCH (21:00)
[2022-11-13 00:28] LABS: ALBUMIN 3.2 G/DL (3.2-5.2); ALKALINE PHOSPHATASE 33 U/L (46-116); ALT/SGPT 71 U/L (7.0-40); AST/SGOT 57 U/L (<34); BLOOD UREA NITROGEN < 5 MG/DL (9-23); CALCIUM LEVEL 8.5 MG/DL (8.5-10.1); CARBON DIOXIDE LEVEL 23 MMOL/L (20-31); CHLORIDE LEVEL 106 MMOL/L (98-107); CREATININE FOR GFR 0.48 MG/DL (0.55-1.30); GLOMERULAR FILTRATION RATE > 60.0 (>60); GLUCOSE, FASTING 81 MG/DL (60-100); POTASSIUM SERUM 3.7 MMOL/L (3.5-5.1); SODIUM LEVEL 138 MMOL/L (136-145); TOTAL PROTEIN 5.6 G/DL (5.7-8.2)
[2022-11-13] MEDS: diphenhydrAMINE 50MG/ML VIAL IV SCH ×4 (00:39→12:32)
[2022-11-13] MEDS ORDERED: PROMETHAZINE 25MG/ML 1ML VIAL IV PRN (01:50)
[2022-11-13 04:16] VITALS: BP 116/58
[2022-11-13] MEDS: ONDANSETRON 4MG 2ML VIAL IV PRN (05:04)
[2022-11-13] MEDS: LR 1,000 ML IV SCH (05:41)
[2022-11-13 08:00] VITALS: BP_SYST 115; BP_SYST 117; BP_DIAS 54; BP_DIAS 55
[2022-11-13 12:00] VITALS: BP 113/59
[2022-11-13] MEDS ORDERED: TRAN1DIS4 TOP (14:02)
== END 2022-11-13 14:34 | disposition home or self-care (01) | DRG 566 ==
LOC: M ED 08:29 → M ED INP 17:00 → M PED 20:10 → OBSVTOIN 11-11 17:23
PROVIDERS: ADMIT Obstetrics & Gynecology; ATTEND Specialist
DX: O21.0 Mild hyperemesis gravidarum (principal); E87.6 Hypokalemia; Z3A.12 12 weeks gestation of pregnancy; O99.281 Endocrine, nutritional and metabolic diseases complicating pregnancy, first trimester

== ENCOUNTER → 2022-11-18 | Outpatient (CLI) | payer MEDICAID ==
[~2022-11-18] MED LIST changes: +ACET-897 PO; +ONDA4TAB6 PO; +PROM25SU3 PR; +TRAN1DIS4 TOP
== END ==
LOC: M PLALAB 08:54
PROVIDERS: ATTEND Advanced Practice Midwife
DX: Z34.81 Encounter for supervision of other normal pregnancy, first trimester (principal); Z84.81 Family history of carrier of genetic disease

== ENCOUNTER → 2023-01-07 | Outpatient (CLI) | payer MEDICAID, OTHER | LOC: M WHC 11:52 | PROVIDERS: ATTEND Advanced Practice Midwife | DX: Z34.01 Encounter for supervision of normal first pregnancy, first trimester (principal); Z3A.20 20 weeks gestation of pregnancy ==

== ENCOUNTER 2023-01-22 10:01 | Outpatient (CLI) | payer MEDICAID, OTHER ==
[~2023-01-22] VITALS: Ht 165.1 cm; Wt 77.0 kg
[2023-01-22] VITALS (7 sets, daily range): BP systolic 111–159; BP diastolic 57–103
[2023-01-22] MEDS ORDERED: LACTATED RINGER'S 1000 ML IV ONE (10:15)
[2023-01-22] MEDS: ONDANSETRON 4MG 2ML VIAL IV PRN ×4 (10:41→23:19)
[2023-01-22] MEDS: PROMETHAZINE 25MG/ML 1ML VIAL IV PRN ×3 (10:41→22:41)
[2023-01-22 10:53] LABS: HEMATOCRIT 36.1 % (36.0-47.0); HEMOGLOBIN 12.7 g/dl (12.0-15.5); MEAN CORPUSCULAR HEMOGLOBIN 30.7 pg (27.0-33.0); MEAN CORPUSCULAR HGB CONC 35.2 g/dl (32.0-36.5); MEAN CORPUSCULAR VOLUME 87.2 fl (80.0-96.0); PLATELET COUNT, AUTOMATED 280 10^3/uL (150-450); RED BLOOD COUNT 4.14 10^6/uL (4.00-5.40); WHITE BLOOD COUNT 20.1 10^3/uL (4.0-10.0)
[2023-01-22] MEDS ORDERED: COLA100C5 PO (11:04)
[2023-01-22] MEDS ORDERED: BENA25CA4 PO (11:04)
[2023-01-22] MEDS ORDERED: PROT20TA11 PO (11:04)
[2023-01-22] MEDS ORDERED: MIRA1POW3 PO (11:04)
[2023-01-22] MEDS ORDERED: TUMS500C PO (11:08)
[2023-01-22] MEDS ORDERED: HOME MED LIST COMPLETE! XX SCH (11:10)
[2023-01-22 11:19] LABS: ALBUMIN 3.6 G/DL (3.2-5.2); ALKALINE PHOSPHATASE 47 U/L (46-116); ALT/SGPT 29 U/L (7.0-40); AST/SGOT 34 U/L (<34); BILIRUBIN,TOTAL 0.5 MG/DL (0.3-1.2); BLOOD UREA NITROGEN 9 MG/DL (9-23); CARBON DIOXIDE LEVEL 18 MMOL/L (20-31); CHLORIDE LEVEL 105 MMOL/L (98-107); CREATININE FOR GFR 0.42 MG/DL (0.55-1.30); GLOMERULAR FILTRATION RATE > 60.0 (>60); GLUCOSE, FASTING 129 MG/DL (60-100); POTASSIUM SERUM 3.3 MMOL/L (3.5-5.1); SODIUM LEVEL 135 MMOL/L (136-145); TOTAL PROTEIN 6.3 G/DL (5.7-8.2)
[2023-01-22] MEDS ORDERED: MULTIVITAMIN -ADULT INJECTION 10 ML, THIAMINE INJection 100 MG, FOLIC ACID 1 MG in NS 1... IV ONE (12:00)
[2023-01-22] MEDS: diphenhydrAMINE 50MG/ML VIAL IV PRN ×2 (19:48→23:18)
[2023-01-22] MEDS: LR 1,000 ML IV SCH (23:25)
[2023-01-23] MEDS ORDERED: CALCIUM CARBONATE 500 MG CHEW U/D PO PRN (02:10)
[2023-01-23 02:43] VITALS: BP 153/87
[2023-01-23] MEDS ORDERED: PANTOPRAZOLE SODIUM 40 MG in D5W 50 ML IV SCH (03:00)
[2023-01-23] MEDS ORDERED: METOCLOPRAMIDE INJ 10MG/2ML VIAL IV SCH (03:10)
[2023-01-23] MEDS: diphenhydrAMINE 50MG/ML VIAL IV PRN ×2 (03:38→10:05)
[2023-01-23] MEDS: ONDANSETRON 4MG 2ML VIAL IV PRN ×3 (03:38→12:27)
[2023-01-23 03:47] VITALS: BP 132/84
[2023-01-23] MEDS ORDERED: METOCLOPRAMIDE INJ 10MG/2ML VIAL IV PRN (04:15)
[2023-01-23] MEDS ORDERED: NALBUPHINE HCL 10 MG/ML 1ML AMP IV PRN (04:20)
[2023-01-23] MEDS: PROMETHAZINE 25MG/ML 1ML VIAL IV PRN (04:55)
[2023-01-23] MEDS: LR 1,000 ML IV SCH (06:26)
[2023-01-23 07:49] VITALS: BP 119/66
[2023-01-23] MEDS ORDERED: METOCLOPRAMIDE 10MG TAB PO ONE (10:20)
[2023-01-23 11:58] LABS: HEMATOCRIT 34.2 % (36.0-47.0); HEMOGLOBIN 11.6 g/dl (12.0-15.5); MEAN CORPUSCULAR HEMOGLOBIN 30.8 pg (27.0-33.0); MEAN CORPUSCULAR HGB CONC 33.9 g/dl (32.0-36.5); MEAN CORPUSCULAR VOLUME 90.7 fl (80.0-96.0); PLATELET COUNT, AUTOMATED 249 10^3/uL (150-450); RED BLOOD COUNT 3.77 10^6/uL (4.00-5.40); WHITE BLOOD COUNT 12.8 10^3/uL (4.0-10.0)
[2023-01-23 13:17] VITALS: BP 122/72
== END 2023-01-23 13:20 | disposition home or self-care (01) ==
LOC: M LDO 10:01
PROVIDERS: ATTEND Obstetrics & Gynecology
DX: O21.0 Mild hyperemesis gravidarum (principal); O98.512 Other viral diseases complicating pregnancy, second trimester; U07.1 COVID-19; Z88.8 Allergy status to other drugs, medicaments and biological substances; Z3A.22 22 weeks gestation of pregnancy
CPT/HCPCS: 36415; 59025; 80053; 85027; 87635; C9113; G0463; J1200; J2300; J2405; J2550; J2765; J3411

== ENCOUNTER → 2023-02-10 | Outpatient (CLI) | payer OTHER ==
[~2023-02-10] MED LIST changes: +BENA25CA4 PO; +COLA100C5 PO; +MIRA1POW3 PO; +PROT20TA11 PO; +TUMS500C PO
== END ==
LOC: M WHC 10:37
PROVIDERS: ATTEND Obstetrics & Gynecology
DX: Z34.92 Encounter for supervision of normal pregnancy, unspecified, second trimester (principal); Z3A.25 25 weeks gestation of pregnancy

== ENCOUNTER → 2023-02-14 | Outpatient (CLI) | payer OTHER | LOC: M PLALAB 13:56 | PROVIDERS: ATTEND Obstetrics & Gynecology | DX: Z36.9 Encounter for antenatal screening, unspecified (principal) ==

== ENCOUNTER 2023-02-16 06:18 | Outpatient (CLI) | payer OTHER ==
[~2023-02-16] VITALS: Ht 162.6 cm; Wt 68.0 kg
[2023-02-16] VITALS (9 sets, daily range): BP systolic 88–133; BP diastolic 51–85
[2023-02-16] MEDS ORDERED: HOME MED LIST COMPLETE! XX SCH (06:40)
[2023-02-16] MEDS ORDERED: D5/LACTATED RINGERS 1000 ML IV ONE (07:40)
[2023-02-16] MEDS ORDERED: ONDANSETRON 4MG 2ML VIAL IV ONE (07:40)
[2023-02-16] MEDS ORDERED: PROMETHAZINE 25MG/ML 1ML VIAL IV ONE (07:40)
[2023-02-16 08:15] LABS: HEMATOCRIT 35.5 % (36.0-47.0); HEMOGLOBIN 12.5 g/dl (12.0-15.5); MEAN CORPUSCULAR HEMOGLOBIN 30.7 pg (27.0-33.0); MEAN CORPUSCULAR HGB CONC 35.2 g/dl (32.0-36.5); MEAN CORPUSCULAR VOLUME 87.2 fl (80.0-96.0); PLATELET COUNT, AUTOMATED 298 10^3/uL (150-450); RED BLOOD COUNT 4.07 10^6/uL (4.00-5.40); WHITE BLOOD COUNT 19.7 10^3/uL (4.0-10.0)
[2023-02-16 08:46] LABS: LIPASE 42 U/L (12-53)
[2023-02-16 08:47] LABS: AMYLASE 137 U/L (30-118)
[2023-02-16 08:48] LABS: ALBUMIN 3.3 G/DL (3.2-5.2); ALKALINE PHOSPHATASE 55 U/L (46-116); ALT/SGPT 17 U/L (7.0-40); AST/SGOT 19 U/L (<34); BILIRUBIN,TOTAL 0.8 MG/DL (0.3-1.2); BLOOD UREA NITROGEN 7 MG/DL (9-23); CALCIUM LEVEL 9.4 MG/DL (8.5-10.1); CARBON DIOXIDE LEVEL 16 MMOL/L (20-31); CHLORIDE LEVEL 106 MMOL/L (98-107); CREATININE FOR GFR 0.49 MG/DL (0.55-1.30); GLOMERULAR FILTRATION RATE > 60.0 (>60); GLUCOSE, FASTING 124 MG/DL (60-100); POTASSIUM SERUM 3.3 MMOL/L (3.5-5.1); SODIUM LEVEL 136 MMOL/L (136-145); TOTAL PROTEIN 6.4 G/DL (5.7-8.2)
[2023-02-16] MEDS ORDERED: MULTIVITAMIN -ADULT INJECTION 10 ML in NS 1,000 ML IV ONE (09:00)
[2023-02-16 09:46] LABS: APPEARANCE, URINE CLOUDY (CLEAR); BACTERIA, URINE AUTO NEGATIVE (NEGATIVE); BILIRUBIN, URINE AUTO NEGATIVE (NEGATIVE); BLOOD, URINE BLOOD NEGATIVE (NEGATIVE); COLOR, URINE YELLOW (YELLOW); GLUCOSE, URINE (UA) AUTO 1+ mg/dL (NEGATIVE); KETONE, URINE AUTO 2+ mg/dL (NEGATIVE); LEUKOCYTE ESTERASE, URINE AUTO NEGATIVE (NEGATIVE); MUCUS, URINE SMALL (NEGATIVE); NITRITE, URINE AUTO NEGATIVE (NEGATIVE); PROTEIN, URINE AUTO 1+ mg/dL (NEGATIVE); RBC, URINE AUTO 2 /HPF (0-3); SPECIFIC GRAVITY URINE AUTO 1.021 (1.002-1.035); SQUAMOUS EPITHELIAL CELL UR AU 1 /HPF (0-6); UROBILINOGEN, URINE AUTO 0.2 mg/dL (0.0-2.0); WBC, URINE AUTO 7 /HPF (0-3)
[2023-02-16] MEDS: PANTOPRAZOLE SODIUM 40 MG in D5W 50 ML IV SCH ×3 (09:50→20:53)
[2023-02-16] MEDS: ONDANSETRON 4MG 2ML VIAL IV SCH ×3 (13:24→20:53)
[2023-02-16] MEDS: diphenhydrAMINE 50MG/ML VIAL IV PRN ×2 (13:25→18:50)
[2023-02-16] MEDS: PROMETHAZINE 25MG/ML 1ML VIAL IV PRN ×2 (14:36→20:53)
[2023-02-16 14:51] LABS: AMPHETAMINES URINE REFLEX NEGATIVE (NEGATIVE); BARBITURATES URINE REFLEX NEGATIVE (NEGATIVE); BENZODIAZEPINES URINE REFLEX NEGATIVE (NEGATIVE); COCAINE METABOLITE URINE REFLE NEGATIVE (NEGATIVE); METHADONE URINE REFLEX NEGATIVE (NEGATIVE); OPIATES URINE REFLEX NEGATIVE (NEGATIVE); PHENCYCLIDINE URINE REFLEX NEGATIVE (NEGATIVE)
[2023-02-16 16:41] LABS: CANNABINOIDS URINE REFLEX PENDING CONFIRMATION (NEGATIVE)
[2023-02-17] MEDS: PANTOPRAZOLE SODIUM 40 MG in D5W 50 ML IV SCH ×3 (00:27→11:00)
[2023-02-17] MEDS: ONDANSETRON 4MG 2ML VIAL IV SCH ×4 (00:27→13:49)
[2023-02-17 05:11] VITALS: BP 100/59
[2023-02-17] MEDS: PROMETHAZINE 25MG/ML 1ML VIAL IV PRN (05:18)
[2023-02-17 05:50] VITALS: BP 84/52
[2023-02-17 06:01] VITALS: BP 92/56
[2023-02-17 09:40] VITALS: BP 114/73
== END 2023-02-17 16:04 | disposition home or self-care (01) ==
LOC: M LDO 06:18
PROVIDERS: ATTEND Obstetrics & Gynecology
DX: O21.8 Other vomiting complicating pregnancy (principal); Z3A.26 26 weeks gestation of pregnancy; O99.322 Drug use complicating pregnancy, second trimester
CPT/HCPCS: 36415; 59025; 80053; 80307; 81001; 82150; 83690; 85027; 96365; 96366; 96375; 96376; C9113; G0463; G0480; J1200; J2405; J2550

== ENCOUNTER 2023-03-16 05:40 | Outpatient (CLI) | payer OTHER, MEDICAID ==
[2023-03-16] VITALS (9 sets, daily range): BP systolic 115–157; BP diastolic 62–104
[~2023-03-16] VITALS: Ht 162.6 cm; Wt 72.0 kg
[2023-03-16] MEDS ORDERED: ONDANSETRON 4MG 2ML VIAL IV ONE (05:55)
[2023-03-16] MEDS ORDERED: LR 1,000 ML IV ONE (06:05)
[2023-03-16 06:14] LABS: HEMATOCRIT 35.8 % (36.0-47.0); HEMOGLOBIN 12.5 g/dl (12.0-15.5); MEAN CORPUSCULAR HEMOGLOBIN 30.6 pg (27.0-33.0); MEAN CORPUSCULAR HGB CONC 34.9 g/dl (32.0-36.5); MEAN CORPUSCULAR VOLUME 87.5 fl (80.0-96.0); PLATELET COUNT, AUTOMATED 370 10^3/uL (150-450); RED BLOOD COUNT 4.09 10^6/uL (4.00-5.40); WHITE BLOOD COUNT 19.3 10^3/uL (4.0-10.0)
[2023-03-16 06:33] LABS: ALBUMIN 3.3 G/DL (3.2-5.2); ALKALINE PHOSPHATASE 71 U/L (46-116); ALT/SGPT 13 U/L (7.0-40); AST/SGOT 18 U/L (<34); BILIRUBIN,TOTAL 0.3 MG/DL (0.3-1.2); BLOOD UREA NITROGEN 8 MG/DL (9-23); CALCIUM LEVEL 9.2 MG/DL (8.5-10.1); CARBON DIOXIDE LEVEL 20 MMOL/L (20-31); CHLORIDE LEVEL 106 MMOL/L (98-107); CREATININE FOR GFR 0.57 MG/DL (0.55-1.30); GLOMERULAR FILTRATION RATE > 60.0 (>60); GLUCOSE, FASTING 143 MG/DL (60-100); POTASSIUM SERUM 3.6 MMOL/L (3.5-5.1); SODIUM LEVEL 138 MMOL/L (136-145); TOTAL PROTEIN 6.2 G/DL (5.7-8.2)
[2023-03-16] MEDS ORDERED: PROMETHAZINE 25MG/ML 1ML VIAL IV ONE (07:15)
[2023-03-16] MEDS ORDERED: diphenhydrAMINE 50MG/ML VIAL IV ONE (07:20)
[2023-03-16] MEDS: LR 1,000 ML IV SCH ×3 (07:31→22:46)
[2023-03-16] MEDS ORDERED: PANTOPRAZOLE 40MG VIAL IV ONE (08:00)
[2023-03-16] MEDS ORDERED: PROM1SUP2 PR (09:01)
[2023-03-16] MEDS: PROMETHAZINE 25MG/ML 1ML VIAL IV PRN ×3 (13:59→22:40)
[2023-03-16] MEDS: CALCIUM CARBONATE 500 MG CHEW U/D PO PRN ×3 (13:59→22:40)
[2023-03-16] MEDS: ONDANSETRON 4MG 2ML VIAL IV PRN (16:25)
[2023-03-16] MEDS ORDERED: HOME MED LIST COMPLETE! XX SCH (18:55)
[2023-03-16] MEDS ORDERED: OMEPRAZOLE 20MG CAP PO ONE (20:35)
[2023-03-17] MEDS: PROMETHAZINE 25MG/ML 1ML VIAL IV PRN ×2 (02:33→11:13)
[2023-03-17] MEDS: ONDANSETRON 4MG 2ML VIAL IV PRN ×2 (05:49→13:52)
[2023-03-17 07:48] VITALS: BP 127/75
[2023-03-17] MEDS: CALCIUM CARBONATE 500 MG CHEW U/D PO PRN (08:02)
[2023-03-17] MEDS: LR 1,000 ML IV SCH (11:13)
[2023-03-17 11:18] VITALS: BP 137/86
[2023-03-17 13:43] VITALS: BP 117/72
[2023-03-18] MEDS ORDERED: ONDA4TAB6 PO (02:25)
== END 2023-03-17 19:00 | disposition home or self-care (01) ==
LOC: M LDO 05:40
PROVIDERS: ATTEND Obstetrics & Gynecology
DX: O21.2 Late vomiting of pregnancy (principal); O26.893 Other specified pregnancy related conditions, third trimester; R10.84 Generalized abdominal pain; Z3A.30 30 weeks gestation of pregnancy
CPT/HCPCS: 59025; 80053; 85027; 96360; 96361; 96374; 96375; 96376; C9113; G0463; J1200; J2405; J2550

== ENCOUNTER → 2023-04-21 | Outpatient (REF) | payer OTHER, MEDICAID ==
[~2023-04-21] MED LIST changes: +MIRA3350 PO
== END ==
LOC: M SFHCWAGY 13:07
PROVIDERS: ATTEND Advanced Practice Midwife
DX: Z34.93 Encounter for supervision of normal pregnancy, unspecified, third trimester (principal)

== ENCOUNTER 2023-04-24 07:20 | Outpatient (CLI) | payer OTHER, MEDICAID ==
[~2023-04-24] VITALS: Ht 162.6 cm; Wt 80.6 kg
[2023-04-24] VITALS (12 sets, daily range): BP systolic 116–157; BP diastolic 65–95
[~2023-04-24 07:20] MED LIST changes: -MIRA3350 PO
[2023-04-24] MEDS ORDERED: MIRA3350 PO (07:32)
[2023-04-24] MEDS ORDERED: COLA100C5 PO (07:33)
[2023-04-24] MEDS ORDERED: HOME MED LIST COMPLETE! XX SCH (07:35)
[2023-04-24] MEDS ORDERED: PROT20TA11 PO (07:37)
[2023-04-24] MEDS ORDERED: LACTATED RINGER'S 1000 ML IV STA (07:59)
[2023-04-24] MEDS ORDERED: LR 1,000 ML IV SCH (08:00)
[2023-04-24] MEDS: ONDANSETRON 4MG 2ML VIAL IV PRN ×3 (08:10→17:03)
[2023-04-24 08:14] LABS: HEMATOCRIT 35.7 % (36.0-47.0); HEMOGLOBIN 12.6 g/dl (12.0-15.5); MEAN CORPUSCULAR HEMOGLOBIN 29.9 pg (27.0-33.0); MEAN CORPUSCULAR HGB CONC 35.3 g/dl (32.0-36.5); MEAN CORPUSCULAR VOLUME 84.8 fl (80.0-96.0); PLATELET COUNT, AUTOMATED 322 10^3/uL (150-450); RED BLOOD COUNT 4.21 10^6/uL (4.00-5.40); WHITE BLOOD COUNT 18.8 10^3/uL (4.0-10.0)
[2023-04-24 08:28] LABS: LIPASE 30 U/L (12-53)
[2023-04-24 08:30] LABS: ALBUMIN 3.3 G/DL (3.2-5.2); ALKALINE PHOSPHATASE 101 U/L (46-116); ALT/SGPT 15 U/L (7.0-40); AST/SGOT 21 U/L (<34); BILIRUBIN,TOTAL 0.6 MG/DL (0.3-1.2); BLOOD UREA NITROGEN 7 MG/DL (9-23); CALCIUM LEVEL 9.2 MG/DL (8.5-10.1); CARBON DIOXIDE LEVEL 18 MMOL/L (20-31); CHLORIDE LEVEL 105 MMOL/L (98-107); CREATININE FOR GFR 0.53 MG/DL (0.55-1.30); GLOMERULAR FILTRATION RATE > 60.0 (>60); GLUCOSE, FASTING 128 MG/DL (60-100); POTASSIUM SERUM 3.6 MMOL/L (3.5-5.1); SODIUM LEVEL 137 MMOL/L (136-145); TOTAL PROTEIN 6.3 G/DL (5.7-8.2)
[2023-04-24] MEDS: PROMETHAZINE 25MG/ML 1ML VIAL IV PRN ×3 (08:35→20:22)
[2023-04-24 10:34] LABS: APPEARANCE, URINE CLEAR (CLEAR); BACTERIA, URINE AUTO 1+ (NEGATIVE); BILIRUBIN, URINE AUTO NEGATIVE (NEGATIVE); BLOOD, URINE BLOOD NEGATIVE (NEGATIVE); COLOR, URINE YELLOW (YELLOW); GLUCOSE, URINE (UA) AUTO 1+ mg/dL (NEGATIVE); KETONE, URINE AUTO 2+ mg/dL (NEGATIVE); LEUKOCYTE ESTERASE, URINE AUTO NEGATIVE (NEGATIVE); MUCUS, URINE SMALL (NEGATIVE); NITRITE, URINE AUTO NEGATIVE (NEGATIVE); PROTEIN, URINE AUTO 1+ mg/dL (NEGATIVE); RBC, URINE AUTO 1 /HPF (0-3); SPECIFIC GRAVITY URINE AUTO 1.019 (1.002-1.035); SQUAMOUS EPITHELIAL CELL UR AU 2 /HPF (0-6); UROBILINOGEN, URINE AUTO 0.2 mg/dL (0.0-2.0); WBC, URINE AUTO 1 /HPF (0-3)
[2023-04-24 10:35] LABS: AMPHETAMINES LEVEL URINE NEGATIVE (NEGATIVE); BARBITURATES URINE NEGATIVE (NEGATIVE); BENZODIAZEPINES URINE NEGATIVE (NEGATIVE); COCAINE METABOLITE URINE NEGATIVE (NEGATIVE); METHADONE URINE NEGATIVE (NEGATIVE); OPIATES URINE NEGATIVE (NEGATIVE); PHENCYCLIDINE URINE NEGATIVE (NEGATIVE)
[2023-04-24 10:36] LABS: CANNABINOIDS URINE POSITIVE (NEGATIVE)
[2023-04-24 10:39] LABS: CREATININE,RANDOM URINE 95.8 MG/DL; TOTAL PROTEIN,RANDOM URINE < 6.0 MG/DL (0.0-14.0)
[2023-04-24] MEDS: BETAMETHASONE SOLUSPAN 6MG/ML 5ML VIAL IM SCH (12:26)
[2023-04-24] MEDS: CALCIUM CARBONATE 500 MG CHEW U/D PO PRN ×2 (12:26→19:40)
[2023-04-24] MEDS ORDERED: NALBUPHINE HCL 10 MG/ML 1ML AMP IV PRN (14:50)
[2023-04-25] MEDS: CALCIUM CARBONATE 500 MG CHEW U/D PO PRN ×2 (02:42→07:17)
[2023-04-25] MEDS: PROMETHAZINE 25MG/ML 1ML VIAL IV PRN ×2 (02:57→09:33)
[2023-04-25 07:07] VITALS: BP 140/85
[2023-04-25] MEDS: ONDANSETRON 4MG 2ML VIAL IV PRN ×2 (07:10→12:28)
[2023-04-25] MEDS ORDERED: diphenhydrAMINE 50MG/ML VIAL IV PRN (07:25)
[2023-04-25 08:05] LABS: BASO % 0.1 % (0.0-1.0); HEMATOCRIT 37.6 % (36.0-47.0); HEMOGLOBIN 13.1 g/dl (12.0-15.5); LYMPH # 2.3 10^3/uL (1.5-5.0); LYMPH % 10.3 % (24.0-44.0); MEAN CORPUSCULAR HEMOGLOBIN 29.7 pg (27.0-33.0); MEAN CORPUSCULAR HGB CONC 34.8 g/dl (32.0-36.5); MEAN CORPUSCULAR VOLUME 85.3 fl (80.0-96.0); MONO # 1.1 10^3/uL (0.0-0.8); MONO % 4.9 % (2.0-8.0); NEUTROPHILS # 18.9 10^3/uL (1.5-8.5); PLATELET COUNT, AUTOMATED 354 10^3/uL (150-450); RED BLOOD COUNT 4.41 10^6/uL (4.00-5.40); WHITE BLOOD COUNT 22.5 10^3/uL (4.0-10.0)
[2023-04-25 08:19] LABS: ALBUMIN 3.3 G/DL (3.2-5.2); ALKALINE PHOSPHATASE 98 U/L (46-116); ALT/SGPT 26 U/L (7.0-40); AST/SGOT 36 U/L (<34); BILIRUBIN,TOTAL 0.9 MG/DL (0.3-1.2); BLOOD UREA NITROGEN < 5 MG/DL (9-23); CALCIUM LEVEL 9.5 MG/DL (8.5-10.1); CARBON DIOXIDE LEVEL 20 MMOL/L (20-31); CHLORIDE LEVEL 104 MMOL/L (98-107); CREATININE FOR GFR 0.52 MG/DL (0.55-1.30); GLOMERULAR FILTRATION RATE > 60.0 (>60); GLUCOSE, FASTING 99 MG/DL (60-100); POTASSIUM SERUM 3.5 MMOL/L (3.5-5.1); SODIUM LEVEL 136 MMOL/L (136-145); TOTAL PROTEIN 6.2 G/DL (5.7-8.2)
[2023-04-25 08:40] VITALS: BP 128/72
[2023-04-25] MEDS ORDERED: PANTOPRAZOLE 40MG VIAL IV ONE (09:00)
[2023-04-25 12:04] VITALS: BP 126/65
[2023-04-25] MEDS: BETAMETHASONE SOLUSPAN 6MG/ML 5ML VIAL IM SCH (12:05)
[2023-04-25 13:02] LABS: TOTAL PROTEIN,RANDOM URINE 6.3 MG/DL (0.0-14.0)
[2023-04-25 13:07] LABS: CREATININE,RANDOM URINE 66.5 MG/DL
== END 2023-04-25 13:45 | disposition home or self-care (01) ==
LOC: M LDO 07:20
PROVIDERS: ATTEND Specialist
DX: O26.893 Other specified pregnancy related conditions, third trimester (principal); O21.2 Late vomiting of pregnancy; O13.3 Gestational [pregnancy-induced] hypertension without significant proteinuria, third trimester; Z3A.35 35 weeks gestation of pregnancy
CPT/HCPCS: 36415; 59025; 76815; 76820; 80053; 80307; 81001; 82570; 83690; 84156; 85025; 85027; 96372; 96374; 96375; 96376; C9113; G0463; J0702; J2300; J2405; J2550

== ENCOUNTER 2023-05-04 13:09 | Inpatient (IN) | payer OTHER, MEDICAID ==
[~2023-05-04] VITALS: Ht 163.8 cm; Wt 83.1 kg
[~2023-05-04 13:09] MED LIST changes: +MIRA3350 PO
[2023-05-04 13:43] VITALS: BP 117/71
[2023-05-04] MEDS ORDERED: OXYTOCIN INJ 10UNITS/ML 1ML VIAL IM PRN (14:20)
[2023-05-04] MEDS ORDERED: OXYTOCIN DRIP 30 UNITS in IV 1 EA IV PRN ×4 (14:20)
[2023-05-04] MEDS ORDERED: CARBOPROST TROMETHAMINE 250 MCG/ML AMP IM PRN (14:20)
[2023-05-04] MEDS ORDERED: LIDOCAINE 1% MDV 20ML VIAL INFIL PRN (14:20)
[2023-05-04] MEDS ORDERED: TRANEXAMIC ACID INJection 1,000 MG in NS 100 ML IV PRN (14:20)
[2023-05-04 14:37] LABS: HEMATOCRIT 36.7 % (36.0-47.0); HEMOGLOBIN 12.3 g/dl (12.0-15.5); MEAN CORPUSCULAR HEMOGLOBIN 29.6 pg (27.0-33.0); MEAN CORPUSCULAR HGB CONC 33.5 g/dl (32.0-36.5); MEAN CORPUSCULAR VOLUME 88.4 fl (80.0-96.0); PLATELET COUNT, AUTOMATED 277 10^3/uL (150-450); RED BLOOD COUNT 4.15 10^6/uL (4.00-5.40); WHITE BLOOD COUNT 10.2 10^3/uL (4.0-10.0)
[2023-05-04] MEDS: miSOPROStol 50MCG 1/2 TABLET PO SCH ×3 (14:40→23:34)
[2023-05-04 15:00] LABS: LDH LACTATE DEHYDROGENASE 212 U/L (120-246)
[2023-05-04 15:02] LABS: ALT/SGPT < 9 U/L (7.0-40); AST/SGOT < 8 U/L (<34); BILIRUBIN,TOTAL 0.5 MG/DL (0.3-1.2); CREATININE FOR GFR 0.57 MG/DL (0.55-1.30); GLOMERULAR FILTRATION RATE > 60.0 (>60)
[2023-05-04 15:09] VITALS: BP 129/80
[2023-05-04] MEDS ORDERED: PRENTAB9 PO (15:15)
[2023-05-04 15:23] LABS: URIC ACID 4.1 MG/DL (3.1-7.8)
[2023-05-04 15:28] LABS: CREATININE,RANDOM URINE 43.5 MG/DL
[2023-05-04 15:33] LABS: TOTAL PROTEIN,RANDOM URINE < 6.0 MG/DL (0.0-14.0)
[2023-05-04 16:51] VITALS: BP 126/80
[2023-05-04 17:57] VITALS: BP 118/69
[2023-05-04] MEDS ORDERED: VALA500T5 PO (18:24)
[2023-05-04] MEDS ORDERED: HOME MED LIST COMPLETE! XX SCH (18:25)
[2023-05-04] MEDS: CALCIUM CARBONATE 500 MG CHEW U/D PO PRN ×2 (18:38→23:37)
[2023-05-04 19:22] VITALS: BP 120/63
[2023-05-04] MEDS ORDERED: PROMETHAZINE 25MG/ML 1ML VIAL IV ONE (20:25)
[2023-05-04] MEDS ORDERED: ONDANSETRON 4MG 2ML VIAL IV ONE (23:00)
[2023-05-04 23:39] VITALS: BP 103/60
[2023-05-05] VITALS (57 sets, daily range): BP systolic 87–191; BP diastolic 50–98; O2SAT 97–100
[2023-05-05] MEDS: ONDANSETRON 4MG 2ML VIAL IV PRN ×3 (03:32→18:54)
[2023-05-05] MEDS ORDERED: PROMETHAZINE 25MG/ML 1ML VIAL IV PRN (04:00)
[2023-05-05] MEDS ORDERED: OXYTOCIN DRIP 30 UNITS in IV 1 EA IV SCH (09:15)
[2023-05-05] MEDS: LR 1,000 ML IV SCH ×2 (09:24→15:26)
[2023-05-05] MEDS: CALCIUM CARBONATE 500 MG CHEW U/D PO PRN ×2 (09:25→16:09)
[2023-05-05] MEDS ORDERED: PANTOPRAZOLE 20 MG TAB PO ONE (10:00)
[2023-05-05] MEDS ORDERED: LR 500 ML IV PRN (19:55)
[2023-05-05] MEDS ORDERED: diphenhydrAMINE 50MG/ML VIAL IV PRN (19:55)
[2023-05-05] MEDS ORDERED: NALOXONE INJ 0.4MG/1ML VIAL IV PRN (19:55)
[2023-05-05] MEDS ORDERED: ONDANSETRON 4MG 2ML VIAL IV PRN (19:55)
[2023-05-05] MEDS ORDERED: FENTANYL/ROPIVACAINE/NACL BAG 100 ML EPIDURAL SCH (19:55)
[2023-05-05] MEDS ORDERED: EPIDURAL/PCA KEYS XX PRN (19:55)
[2023-05-05] MEDS: ePHEDrine SULFATE 25 MG/5 ML(5MG/ML) SYRINGE IVP PRN ×3 (23:11→23:19)
[2023-05-06] VITALS (24 sets, daily range): BP systolic 83–153; BP diastolic 51–113; O2SAT 98–99
[2023-05-06] MEDS: CALCIUM CARBONATE 500 MG CHEW U/D PO PRN ×2 (00:26→08:12)
[2023-05-06] MEDS: LR 1,000 ML IV SCH (01:15)
[2023-05-06] MEDS: ONDANSETRON 4MG 2ML VIAL IV PRN (03:47)
[2023-05-06] MEDS ORDERED: IBUPROFEN 600MG TAB PO PRN (05:55)
[2023-05-06] MEDS ORDERED: ACETAMINOPHEN TAB 650MG DOSE (2X325MG) PO PRN (05:55)
[2023-05-06] MEDS ORDERED: OXYTOCIN DRIP 30 UNITS in IV 1 EA IV SCH (05:55)
[2023-05-06] MEDS ORDERED: DIBUCAINE 1% OINTMENT 30GM TOP PRN (05:55)
[2023-05-06] MEDS ORDERED: IBUPROFEN 800 MG TAB PO PRN (05:55)
[2023-05-06] MEDS ORDERED: ANUSOL HC CREAM 30GM TOP PRN (05:55)
[2023-05-06] MEDS ORDERED: MOM 30ML SUSPENSION UDC PO PRN (05:55)
[2023-05-06] MEDS ORDERED: ACETAMINOPHEN 500 MG TAB PO PRN (05:55)
[2023-05-06] MEDS ORDERED: METHYLERGONOVINE MALEATE 0.2 MG TAB PO PRN (05:55)
[2023-05-06] MEDS ORDERED: RHOGAM 300MCG (1500IU) INJ IM SCH (05:55)
[2023-05-06] MEDS: DOCUSATE SODIUM 100MG CAPSULE PO PRN ×2 (08:12→20:45)
[2023-05-06] MEDS: PRENATAL VITAMINS CHEWABLE TABLET PO SCH (08:12)
[2023-05-06] MEDS ORDERED: PANTOPRAZOLE 20 MG TAB PO SCH (10:05)
[2023-05-06] MEDS: PANTOPRAZOLE 20 MG TAB PO SCH (20:45)
[2023-05-07 06:00] VITALS: BP 119/82; O2SAT 98
[2023-05-07] MEDS: CALCIUM CARBONATE 500 MG CHEW U/D PO PRN (09:17)
[2023-05-07] MEDS: PRENATAL VITAMINS CHEWABLE TABLET PO SCH (09:17)
[2023-05-07] MEDS: DOCUSATE SODIUM 100MG CAPSULE PO PRN ×2 (09:28→20:49)
[2023-05-07 18:00] VITALS: BP 129/72; O2SAT 97
[2023-05-07] MEDS: PANTOPRAZOLE 20 MG TAB PO SCH (20:06)
[2023-05-08 06:00] VITALS: BP 117/81; O2SAT 99
[2023-05-08] MEDS: PRENATAL VITAMINS CHEWABLE TABLET PO SCH (09:00)
[2023-05-08] MEDS ORDERED: MEASLES,MUMPS,RUBELLA VACCINE INJ (MMR-II) SC.IMMUN ONE (09:00)
== END 2023-05-08 17:10 | disposition home or self-care (01) | DRG 560 ==
LOC: M LDI 13:09 → M OBS 05-06 06:23
PROVIDERS: ADMIT Advanced Practice Midwife; ATTEND Obstetrics & Gynecology
PROC: 3E0P7GC Introduction of Other Therapeutic Substance into Female Reproductive, Via Natural or Artificial Opening (ICD-10-PCS; 2023-05-04)
PROC: 10E0XZZ Delivery of Products of Conception, External Approach (ICD-10-PCS; principal; 2023-05-06)
PROC: 0HQ9XZZ Repair Perineum Skin, External Approach (ICD-10-PCS; 2023-05-06)
DX: O13.4 Gestational [pregnancy-induced] hypertension without significant proteinuria, complicating childbirth (principal); O70.0 First degree perineal laceration during delivery; Z3A.37 37 weeks gestation of pregnancy; Z37.0 Single live birth

== ENCOUNTER → 2024-02-27 | Outpatient (CLI) | payer OTHER, MEDICAID ==
[~2024-02-27] MED LIST changes: -MIRA1POW3 PO; +MIRA33506 PO; +PRENTAB9 PO; +VALA500T5 PO
== END ==
LOC: M PLALAB 11:37
PROVIDERS: ATTEND Advanced Practice Midwife
DX: O36.80X0 Pregnancy with inconclusive fetal viability, not applicable or unspecified (principal)

== ENCOUNTER → 2024-03-07 | Outpatient (CLI) | payer OTHER | LOC: M PLALAB 12:14 | PROVIDERS: ATTEND Advanced Practice Midwife | DX: O36.80X0 Pregnancy with inconclusive fetal viability, not applicable or unspecified (principal) ==

== ENCOUNTER 2024-04-03 15:36 | Emergency (ER) | payer OTHER ==
[~2024-04-03] VITALS: Ht 162.6 cm; Wt 77.7 kg
[~2024-04-03 15:36] MED LIST changes: +ONDA-282 PO; -ONDA4TAB6 PO
[2024-04-03] MEDS ORDERED: ACET-683 PO (15:50)
[2024-04-03] MEDS ORDERED: FLINCHW2 PO (15:50)
[2024-04-03 16:19] LABS: BASO # 0.1 10^3/uL (0.0-0.2); BASO % 0.6 % (0.0-1.0); EOS # 0.2 10^3/uL (0.0-0.5); EOS % 2.3 % (0.0-3.0); HEMATOCRIT 47.6 % (36.0-47.0); HEMOGLOBIN 15.9 g/dl (12.0-15.5); LYMPH % 19.6 % (24.0-44.0); MEAN CORPUSCULAR HEMOGLOBIN 29.8 pg (27.0-33.0); MEAN CORPUSCULAR HGB CONC 33.4 g/dl (32.0-36.5); MEAN CORPUSCULAR VOLUME 89.3 fl (80.0-96.0); MONO # 0.4 10^3/uL (0.0-0.8); NEUTROPHILS # 7.6 10^3/uL (1.5-8.5); NEUTROPHILS % 73.3 % (36.0-66.0); PLATELET COUNT, AUTOMATED 299 10^3/uL (150-450); RED BLOOD COUNT 5.33 10^6/uL (4.00-5.40); WHITE BLOOD COUNT 10.3 10^3/uL (4.0-10.0)
[2024-04-03] MEDS: NS 1,000 ML IV ONE (16:32)
[2024-04-03 16:38] LABS: APPEARANCE, URINE CLEAR (CLEAR); BACTERIA, URINE AUTO NEGATIVE (NEGATIVE); BILIRUBIN, URINE AUTO NEGATIVE (NEGATIVE); BLOOD, URINE BLOOD 3+ (NEGATIVE); COLOR, URINE STRAW (YELLOW); GLUCOSE, URINE (UA) AUTO NEGATIVE (NEGATIVE); KETONE, URINE AUTO NEGATIVE (NEGATIVE); LEUKOCYTE ESTERASE, URINE AUTO NEGATIVE (NEGATIVE); NITRITE, URINE AUTO NEGATIVE (NEGATIVE); PROTEIN, URINE AUTO NEGATIVE (NEGATIVE); RBC, URINE AUTO 0 /HPF (0-3); SPECIFIC GRAVITY URINE AUTO 1.004 (1.002-1.035); SQUAMOUS EPITHELIAL CELL UR AU 1 /HPF (0-6); UROBILINOGEN, URINE AUTO 0.2 mg/dL (0.0-2.0); WBC, URINE AUTO 1 /HPF (0-3)
[2024-04-03 16:54] LABS: HCG, SERUM QUANTITATIVE < 2.6 MIU/ML (<4.2)
[2024-04-03 16:55] LABS: BLOOD UREA NITROGEN 9 MG/DL (9-23); CALCIUM LEVEL 9.4 MG/DL (8.5-10.1); CARBON DIOXIDE LEVEL 29 MMOL/L (20-31); CHLORIDE LEVEL 106 MMOL/L (98-107); CREATININE FOR GFR 0.68 MG/DL (0.55-1.30); GLOMERULAR FILTRATION RATE > 60.0 (>60); GLUCOSE, FASTING 91 MG/DL (60-100); POTASSIUM SERUM 4.3 MMOL/L (3.5-5.1); SODIUM LEVEL 142 MMOL/L (136-145)
[2024-04-03 18:26] LABS: HEMATOCRIT 47.1 % (36.0-47.0); HEMOGLOBIN 15.5 g/dl (12.0-15.5)
[2024-04-03 19:15] VITALS: BP 130/87; TEMP 97.7; O2SAT 98
== END 2024-04-03 19:17 | disposition home or self-care (01) ==
LOC: M ED 15:36
DX: N92.0 Excessive and frequent menstruation with regular cycle (principal); Z88.8 Allergy status to other drugs, medicaments and biological substances; Z79.1 Long term (current) use of non-steroidal anti-inflammatories (NSAID); Z79.810 Long term (current) use of selective estrogen receptor modulators (SERMs); Z79.899 Other long term (current) drug therapy

== ENCOUNTER 2024-06-16 11:30 | Emergency (ER) | payer OTHER ==
[~2024-06-16] VITALS: Ht 165.1 cm; Wt 75.0 kg
[~2024-06-16 11:30] MED LIST changes: +ACET-683 PO; +FLINCHW2 PO
[2024-06-16 12:16] LABS: BASO # 0.1 10^3/uL (0.0-0.2); BASO % 0.6 % (0.0-1.0); EOS # 0.2 10^3/uL (0.0-0.5); EOS % 0.9 % (0.0-3.0); HEMOGLOBIN 16.6 g/dl (12.0-15.5); LYMPH # 3.5 10^3/uL (1.5-5.0); LYMPH % 17.1 % (24.0-44.0); MEAN CORPUSCULAR HEMOGLOBIN 28.9 pg (27.0-33.0); MEAN CORPUSCULAR HGB CONC 33.9 g/dl (32.0-36.5); MEAN CORPUSCULAR VOLUME 85.2 fl (80.0-96.0); MONO # 0.9 10^3/uL (0.0-0.8); MONO % 4.5 % (2.0-8.0); NEUTROPHILS # 15.6 10^3/uL (1.5-8.5); NEUTROPHILS % 76.4 % (36.0-66.0); PLATELET COUNT, AUTOMATED 417 10^3/uL (150-450); RED BLOOD COUNT 5.75 10^6/uL (4.00-5.40); WHITE BLOOD COUNT 20.4 10^3/uL (4.0-10.0)
[2024-06-16] MEDS: NS 1,000 ML IV ONE ×2 (12:25→14:21)
[2024-06-16] MEDS: ONDANSETRON 4MG 2ML VIAL IV ONE (12:25)
[2024-06-16 12:40] LABS: LIPASE 32 U/L (12-53)
[2024-06-16 12:41] LABS: ALBUMIN 4.5 G/DL (3.2-5.2); ALKALINE PHOSPHATASE 73 U/L (46-116); ALT/SGPT 19 U/L (7.0-40); AST/SGOT 38 U/L (<34); BILIRUBIN,DIRECT 0.2 MG/DL (<0.4); BILIRUBIN,TOTAL 0.5 MG/DL (0.3-1.2); HCG, SERUM QUANTITATIVE < 2.6 MIU/ML (<4.2); TOTAL PROTEIN 7.6 G/DL (5.7-8.2)
[2024-06-16] MEDS: PROMETHAZINE 25MG/ML 1ML VIAL IM ONE (12:54)
[2024-06-16] MEDS ORDERED: ISOVUE-370 76% 100ML VIAL As Ordered ONE (13:36)
[2024-06-16] MEDS: KETOROLAC 30 MG/ML 1ML VIAL IV ONE (14:22)
[2024-06-16] MEDS: CAPSAICIN 0.025% CR 60 GM TOP ONE (14:22)
[2024-06-16] MEDS: HALOPERIDOL LACTATE 5MG/ML VIAL IV ONE (15:24)
[2024-06-16] MEDS ORDERED: AMOX875T2 PO (17:34)
[2024-06-16] MEDS ORDERED: ONDA-282 PO (17:34)
[2024-06-16 17:37] VITALS: BP 103/54; TEMP 98.3; O2SAT 97
== END 2024-06-16 17:46 | disposition home or self-care (01) ==
LOC: M ED 11:30
DX: F12.188 Cannabis abuse with other cannabis-induced disorder (principal); E86.0 Dehydration; N83.291 Other ovarian cyst, right side; D72.829 Elevated white blood cell count, unspecified; N28.1 Cyst of kidney, acquired; K42.9 Umbilical hernia without obstruction or gangrene; Z88.8 Allergy status to other drugs, medicaments and biological substances; Z79.2 Long term (current) use of antibiotics; Z79.83 Long term (current) use of bisphosphonates; Z79.899 Other long term (current) drug therapy
CPT/HCPCS: 74177; 80047; 80076; 81001; 83605; 83690; 84702; 85025; 96361; 96372; 96374; 96375; 99284; J1630; J1885; J2405; J2550; Q9967

== ENCOUNTER 2024-09-21 07:23 | Emergency (ER) | payer OTHER ==
[~2024-09-21] VITALS: Ht 162.6 cm; Wt 77.6 kg
[~2024-09-21 07:23] MED LIST changes: +AMOX875T2 PO
[2024-09-21] MEDS ORDERED: ESCITALOPRAM (07:32)
[2024-09-21] MEDS: HALOPERIDOL LACTATE 5MG/ML VIAL IV ONE (08:11)
[2024-09-21 08:23] LABS: BASO % 0.2 % (0.0-1.0); EOS % 0.1 % (0.0-3.0); HEMATOCRIT 47.5 % (36.0-47.0); HEMOGLOBIN 16.8 g/dl (12.0-15.5); LYMPH # 1.4 10^3/uL (1.5-5.0); LYMPH % 7.2 % (24.0-44.0); MEAN CORPUSCULAR HEMOGLOBIN 30.7 pg (27.0-33.0); MEAN CORPUSCULAR HGB CONC 35.4 g/dl (32.0-36.5); MEAN CORPUSCULAR VOLUME 86.8 fl (80.0-96.0); MONO # 1.3 10^3/uL (0.0-0.8); MONO % 6.8 % (2.0-8.0); NEUTROPHILS # 16.2 10^3/uL (1.5-8.5); NEUTROPHILS % 85.3 % (36.0-66.0); PLATELET COUNT, AUTOMATED 378 10^3/uL (150-450); RED BLOOD COUNT 5.47 10^6/uL (4.00-5.40)
[2024-09-21 09:02] LABS: ALBUMIN 4.6 G/DL (3.2-5.2); ALKALINE PHOSPHATASE 68 U/L (35-104); ALT/SGPT 21 U/L (7.0-40); AST/SGOT 29 U/L (<34); BILIRUBIN,DIRECT 0.3 MG/DL (<0.4); BILIRUBIN,TOTAL 0.9 MG/DL (0.3-1.2); BLOOD UREA NITROGEN 20 MG/DL (9-23); CALCIUM LEVEL 10.8 MG/DL (8.5-10.1); CARBON DIOXIDE LEVEL 20 MMOL/L (20-31); CHLORIDE LEVEL 104 MMOL/L (98-107); GLOMERULAR FILTRATION RATE > 60.0 (>60); GLUCOSE, FASTING 120 MG/DL (60-100); POTASSIUM SERUM 3.6 MMOL/L (3.5-5.1); SODIUM LEVEL 139 MMOL/L (136-145); TOTAL PROTEIN 7.8 G/DL (5.7-8.2)
[2024-09-21 09:20] LABS: HCG, SERUM QUALITATIVE NEGATIVE (NEGATIVE)
[2024-09-21 09:34] VITALS: BP 106/63; TEMP 96.7; O2SAT 95
[2024-09-21] MEDS ORDERED: PROT1TAB2 PO (10:00)
== END 2024-09-21 10:02 | disposition home or self-care (01) ==
LOC: M ED 07:23
DX: R11.15 Cyclical vomiting syndrome unrelated to migraine (principal); F12.10 Cannabis abuse, uncomplicated; Z88.8 Allergy status to other drugs, medicaments and biological substances; Z79.1 Long term (current) use of non-steroidal anti-inflammatories (NSAID); Z79.810 Long term (current) use of selective estrogen receptor modulators (SERMs); Z79.899 Other long term (current) drug therapy
CPT/HCPCS: 80048; 80076; 84703; 85025; 96374; 99284; J1630

== ENCOUNTER → 2024-11-06 | Outpatient (CLI) | payer OTHER ==
[~2024-11-06] MED LIST changes: +ESCITALOPRAM; +PROT1TAB2 PO
== END ==
LOC: M WUC 10:03
PROVIDERS: ATTEND Nurse Practitioner Family
DX: M25.471 Effusion, right ankle (principal)

== ENCOUNTER → 2024-11-29 | Outpatient (CLI) | payer OTHER | LOC: M WUC 14:55 | PROVIDERS: ATTEND Nurse Practitioner Family | DX: M25.571 Pain in right ankle and joints of right foot (principal) ==

== ENCOUNTER 2024-11-30 12:44 | Emergency (ER) | payer OTHER ==
[~2024-11-30] VITALS: Ht 162.6 cm; Wt 86.1 kg
[2024-11-30 12:51] VITALS: BP 146/93; TEMP 98.6; O2SAT 98
== END 2024-11-30 16:18 | disposition left against medical advice (07) ==
LOC: M ED 12:44
DX: Z53.21 Procedure and treatment not carried out due to patient leaving prior to being seen by health care provider (principal)

== ENCOUNTER → 2025-01-09 | Day surgery (SDC) | payer OTHER ==
[~2025-01-09] VITALS: Ht 162.6 cm; Wt 87.7 kg
[~2025-01-09] MED LIST changes: +ACETAMINOPHEN 1000MG/100ML IV BAG As Ordered ONE; +ESSE250T PO; +HYDROmorphone HCL 2MG/ML 1ML VIAL As Ordered ONE; +INDOCYANINE GREEN 25MG VIAL (IC-GREEN) As Ordered ONE; +K-TA1TAB PO; +KETOROLAC 30 MG/ML 1ML VIAL As Ordered ONE; +LEXA1TAB PO; +LIDOCAINE 1% SDV 5ML VIAL SC PRN; +LIDOCAINE 2% 100MG/5ML SDV (FOR ANES.) As Ordered ONE; +LR 1,000 ML IV SCH; +MIDAZOLAM INJ 2MG/2ML VIAL As Ordered ONE; +MULTTAB20 PO; +ONDA-284 PO; +ONDANSETRON 4MG 2ML VIAL As Ordered ONE; +PANT40TA29 PO; +ROCURONIUM BROMIDE 50MG/5ML VIAL As Ordered ONE; +SUGAMMADEX SODIUM 500 MG/5 ML VIAL (BRIDION) As Ordered ONE; +VENTAER INH; +fentaNYL 100 MCG/2 ML INJECTION IV PRN; +fentaNYL 250 MCG/5 ML INJECTION As Ordered ONE; +oxyCODONE 5MG TAB PO PRN; +propofoL 200 MG/20 ML VIAL As Ordered ONE
[2025-01-09] MEDS: INDOCYANINE GREEN 25MG VIAL (IC-GREEN) IV ONE (18:22)
[2025-01-09] MEDS: HEPARIN SOD (PORCINE) 5000UNITS/ML 1ML VIAL/SYRINGE SQ ONE (18:33)
[2025-01-09] MEDS: ceFAZolin SOD 2 GM IV ONCE IV ONE (18:33)
[2025-01-09] MEDS: ONDANSETRON 4MG 2ML VIAL IV PRN (19:56)
[2025-01-09] MEDS: HYDROMORPHONE HCL 0.5 MG/ 0.5 ML SYRINGE IV PRN (20:13)
[2025-01-09] MEDS: PROMETHAZINE 25MG/ML 1ML VIAL IV STA (21:25)
[2025-01-09 22:16] VITALS: BP 120/66; TEMP 98.9; O2SAT 100
== END | disposition home or self-care (01) ==
LOC: M SDC 12:57
PROVIDERS: ATTEND Surgery
DX: K80.10 Calculus of gallbladder with chronic cholecystitis without obstruction (principal); Z88.8 Allergy status to other drugs, medicaments and biological substances; Z79.899 Other long term (current) drug therapy; F17.290 Nicotine dependence, other tobacco product, uncomplicated
CPT/HCPCS: 47563; 81025; 88304; J0131; J0665; J0690; J1100; J1171; J1885; J2250; J2405; J2550; J3010; Q9968; S2900

== ENCOUNTER 2025-01-10 11:46 | Emergency (ER) | payer OTHER ==
[~2025-01-10] VITALS: Ht 162.6 cm; Wt 87.5 kg
[~2025-01-10 11:46] MED LIST changes: -ACETAMINOPHEN 1000MG/100ML IV BAG As Ordered ONE; -ESSE250T PO; -HYDROmorphone HCL 2MG/ML 1ML VIAL As Ordered ONE; -INDOCYANINE GREEN 25MG VIAL (IC-GREEN) As Ordered ONE; -K-TA1TAB PO; -KETOROLAC 30 MG/ML 1ML VIAL As Ordered ONE; -LIDOCAINE 1% SDV 5ML VIAL SC PRN; -LIDOCAINE 2% 100MG/5ML SDV (FOR ANES.) As Ordered ONE; -LR 1,000 ML IV SCH; -MIDAZOLAM INJ 2MG/2ML VIAL As Ordered ONE; -MULTTAB20 PO; -ONDA-284 PO; -ONDANSETRON 4MG 2ML VIAL As Ordered ONE; -ROCURONIUM BROMIDE 50MG/5ML VIAL As Ordered ONE; -SUGAMMADEX SODIUM 500 MG/5 ML VIAL (BRIDION) As Ordered ONE; -fentaNYL 100 MCG/2 ML INJECTION IV PRN; -fentaNYL 250 MCG/5 ML INJECTION As Ordered ONE; -oxyCODONE 5MG TAB PO PRN; -propofoL 200 MG/20 ML VIAL As Ordered ONE
[2025-01-10 12:38] LABS: BASO % 0.2 % (0.0-1.0); EOS % 0.1 % (0.0-3.0); HEMATOCRIT 43.1 % (36.0-47.0); HEMOGLOBIN 15.1 g/dl (12.0-15.5); LYMPH # 1.2 10^3/uL (1.5-5.0); MEAN CORPUSCULAR HEMOGLOBIN 32.1 pg (27.0-33.0); MEAN CORPUSCULAR VOLUME 91.7 fl (80.0-96.0); MONO # 0.7 10^3/uL (0.0-0.8); MONO % 5.4 % (2.0-8.0); NEUTROPHILS # 10.1 10^3/uL (1.5-8.5); NEUTROPHILS % 84.1 % (36.0-66.0); PLATELET COUNT, AUTOMATED 254 10^3/uL (150-450)
[2025-01-10 13:20] LABS: ALBUMIN 3.9 G/DL (3.2-5.2); ALKALINE PHOSPHATASE 76 U/L (35-104); ALT/SGPT 38 U/L (7.0-40); AST/SGOT 63 U/L (<34); BILIRUBIN,DIRECT 0.3 MG/DL (<0.4); BILIRUBIN,TOTAL 0.9 MG/DL (0.3-1.2); BLOOD UREA NITROGEN 11 MG/DL (9-23); CARBON DIOXIDE LEVEL 22 MMOL/L (20-31); CHLORIDE LEVEL 106 MMOL/L (98-107); CREATININE FOR GFR 0.65 MG/DL (0.55-1.30); GLOMERULAR FILTRATION RATE > 60.0 (>60); GLUCOSE, FASTING 99 MG/DL (60-100); POTASSIUM SERUM 3.9 MMOL/L (3.5-5.1); SODIUM LEVEL 141 MMOL/L (136-145); TOTAL PROTEIN 6.9 G/DL (5.7-8.2)
[2025-01-10] MEDS: KETOROLAC 30 MG/ML 1ML VIAL IM ONE (14:51)
[2025-01-10 14:57] VITALS: BP 123/81; TEMP 97.9; O2SAT 98
== END 2025-01-10 15:37 | disposition home or self-care (01) ==
LOC: M ED 11:46
DX: R10.9 Unspecified abdominal pain (principal); Z88.8 Allergy status to other drugs, medicaments and biological substances; Z79.51 Long term (current) use of inhaled steroids; Z79.899 Other long term (current) drug therapy
CPT/HCPCS: 80048; 80076; 85025; 96372; 99283; J1885

== ENCOUNTER 2025-01-13 01:16 | Emergency (ER) | payer OTHER ==
[~2025-01-13] VITALS: Ht 162.6 cm; Wt 87.7 kg
[2025-01-13] MEDS: NS (Normal Saline) 0.9% 1,000 ML IV ONE ×2 (01:55→08:03)
[2025-01-13] MEDS: HALOPERIDOL LACTATE 5MG/ML VIAL IV ONE ×2 (01:55→09:08)
[2025-01-13] MEDS: ONDANSETRON 4MG 2ML VIAL IV ONE ×2 (03:12→09:08)
[2025-01-13] MEDS: MORPHINE 2 MG/ML 1ML VIAL IV ONE (03:16)
[2025-01-13 03:41] LABS: BASO % 0.1 % (0.0-1.0); EOS % 0.1 % (0.0-3.0); HEMATOCRIT 36.7 % (36.0-47.0); HEMOGLOBIN 12.7 g/dl (12.0-15.5); LYMPH # 0.8 10^3/uL (1.5-5.0); LYMPH % 5.4 % (24.0-44.0); MEAN CORPUSCULAR HEMOGLOBIN 31.7 pg (27.0-33.0); MEAN CORPUSCULAR HGB CONC 34.6 g/dl (32.0-36.5); MEAN CORPUSCULAR VOLUME 91.5 fl (80.0-96.0); MONO # 0.7 10^3/uL (0.0-0.8); MONO % 4.8 % (2.0-8.0); NEUTROPHILS # 12.5 10^3/uL (1.5-8.5); NEUTROPHILS % 88.9 % (36.0-66.0); PLATELET COUNT, AUTOMATED 225 10^3/uL (150-450); RED BLOOD COUNT 4.01 10^6/uL (4.00-5.40)
[2025-01-13 03:53] LABS: LIPASE 24 U/L (12-53)
[2025-01-13 04:14] LABS: ALBUMIN 3.7 G/DL (3.2-5.2); ALKALINE PHOSPHATASE 63 U/L (35-104); ALT/SGPT 27 U/L (7.0-40); AST/SGOT 30 U/L (<34); BILIRUBIN,TOTAL 0.7 MG/DL (0.3-1.2); BLOOD UREA NITROGEN 6 MG/DL (9-23); CALCIUM LEVEL 8.4 MG/DL (8.5-10.1); CARBON DIOXIDE LEVEL 24 MMOL/L (20-31); CHLORIDE LEVEL 107 MMOL/L (98-107); CREATININE FOR GFR 0.52 MG/DL (0.55-1.30); GLOMERULAR FILTRATION RATE > 60.0 (>60); GLUCOSE, FASTING 142 MG/DL (60-100); POTASSIUM SERUM 3.1 MMOL/L (3.5-5.1); SODIUM LEVEL 143 MMOL/L (136-145); TOTAL PROTEIN 6.6 G/DL (5.7-8.2)
[2025-01-13] MEDS: POTASSIUM CHLORIDE 10% LIQ 20MEQ/15ML UDC PO ONE (06:40)
[2025-01-13 06:46] LABS: MAGNESIUM LEVEL 1.3 MG/DL (1.8-2.4)
[2025-01-13 08:00] VITALS: TEMP 98.3
[2025-01-13] MEDS: MAG SULF 1GM/100ML (MAG RUN) 1 GM in IV 1 EA IV ONE (08:02)
[2025-01-13] MEDS ORDERED: ISOVUE-370 76% 100ML VIAL As Ordered ONE (08:11)
[2025-01-13] MEDS ORDERED: MULTTAB20 PO (10:10)
[2025-01-13] MEDS ORDERED: HOME MED LIST COMPLETE! XX SCH (10:15)
[2025-01-13 12:34] LABS: BILIRUBIN,DIRECT 0.3 MG/DL (<0.4); C REACTIVE PROTEIN QUANTITATIV < 0.50 MG/DL (<1.0)
[2025-01-13 12:41] LABS: ERYTHROCYTE SEDIMENTATION RATE 5 mm/hr (0-20)
[2025-01-13] MEDS: POTASSIUM CHLORIDE 10MEQ SR TABLET PO ONE (12:41)
[2025-01-13] MEDS: MAG SULF 1GM/100ML (MAG RUN) 1 GM in IV 1 EA IV SCH (12:41)
[2025-01-13 12:46] LABS: PROCALCITONIN <0.04 ng/ml
[2025-01-13 13:01] LABS: HEMATOCRIT 41.4 % (36.0-47.0); MEAN CORPUSCULAR HEMOGLOBIN 31.9 pg (27.0-33.0); MEAN CORPUSCULAR HGB CONC 33.8 g/dl (32.0-36.5); MEAN CORPUSCULAR VOLUME 94.3 fl (80.0-96.0); PLATELET COUNT, AUTOMATED 246 10^3/uL (150-450); RED BLOOD COUNT 4.39 10^6/uL (4.00-5.40); WHITE BLOOD COUNT 10.2 10^3/uL (4.0-10.0)
[2025-01-13] MEDS: SCOPOLAMINE 1MG TRANSDERMAL PATCH TOP SCH (13:03)
[2025-01-13] MEDS: ONDANSETRON 4MG 2ML VIAL IV SCH (13:08)
[2025-01-13] MEDS ORDERED: K-TA1TAB PO (14:17)
[2025-01-13] MEDS ORDERED: ESSE250T PO (14:18)
[2025-01-13 14:30] VITALS: BP 135/91; O2SAT 99
[2025-01-14] MEDS ORDERED: ONDA-284 PO (14:12)
== END 2025-01-13 14:44 | disposition home or self-care (01) ==
LOC: M ED 01:16
DX: R11.10 Vomiting, unspecified (principal); E87.6 Hypokalemia; E83.42 Hypomagnesemia; F17.290 Nicotine dependence, other tobacco product, uncomplicated; F12.10 Cannabis abuse, uncomplicated; F10.10 Alcohol abuse, uncomplicated; Z88.8 Allergy status to other drugs, medicaments and biological substances; Z79.51 Long term (current) use of inhaled steroids; Z79.899 Other long term (current) drug therapy
CPT/HCPCS: 74177; 80053; 82248; 83690; 83735; 84145; 84702; 85025; 85027; 85652; 86140; 93005; 96374; 96375; 96376; 99285; J1630; J2405; J3475; Q9967

== ENCOUNTER 2025-01-14 10:32 | Emergency (ER) | payer OTHER ==
[~2025-01-14] VITALS: Ht 162.6 cm; Wt 86.2 kg
[~2025-01-14 10:32] MED LIST changes: +ESSE250T PO; +K-TA1TAB PO; +MULTTAB20 PO
[2025-01-14 11:59] LABS: BASO # 0.1 10^3/uL (0.0-0.2); BASO % 0.4 % (0.0-1.0); EOS # 0.2 10^3/uL (0.0-0.5); EOS % 1.6 % (0.0-3.0); HEMATOCRIT 40.9 % (36.0-47.0); HEMOGLOBIN 13.9 g/dl (12.0-15.5); LYMPH # 1.2 10^3/uL (1.5-5.0); LYMPH % 9.8 % (24.0-44.0); MEAN CORPUSCULAR HEMOGLOBIN 31.4 pg (27.0-33.0); MEAN CORPUSCULAR VOLUME 92.3 fl (80.0-96.0); MONO # 0.7 10^3/uL (0.0-0.8); MONO % 6.1 % (2.0-8.0); NEUTROPHILS # 9.9 10^3/uL (1.5-8.5); NEUTROPHILS % 81.8 % (36.0-66.0); PLATELET COUNT, AUTOMATED 303 10^3/uL (150-450); RED BLOOD COUNT 4.43 10^6/uL (4.00-5.40); WHITE BLOOD COUNT 12.2 10^3/uL (4.0-10.0)
[2025-01-14 12:16] LABS: LIPASE 29 U/L (12-53)
[2025-01-14 12:20] LABS: ALBUMIN 3.9 G/DL (3.2-5.2); ALKALINE PHOSPHATASE 60 U/L (35-104); ALT/SGPT 30 U/L (7.0-40); AST/SGOT 49 U/L (<34); BILIRUBIN,DIRECT 0.3 MG/DL (<0.4); BLOOD UREA NITROGEN 10 MG/DL (9-23); CALCIUM LEVEL 9.6 MG/DL (8.5-10.1); CARBON DIOXIDE LEVEL 26 MMOL/L (20-31); CHLORIDE LEVEL 100 MMOL/L (98-107); CREATININE FOR GFR 0.58 MG/DL (0.55-1.30); GLOMERULAR FILTRATION RATE > 60.0 (>60); GLUCOSE, FASTING 115 MG/DL (60-100); POTASSIUM SERUM 3.8 MMOL/L (3.5-5.1); SODIUM LEVEL 139 MMOL/L (136-145); TOTAL PROTEIN 7.1 G/DL (5.7-8.2)
[2025-01-14] MEDS: HALOPERIDOL LACTATE 5MG/ML VIAL IV ONE (13:00)
[2025-01-14] MEDS: PANTOPRAZOLE 40MG VIAL IV ONE (13:01)
[2025-01-14] MEDS: KETOROLAC 30 MG/ML 1ML VIAL IV ONE (13:01)
[2025-01-14 13:14] LABS: MAGNESIUM LEVEL 1.7 MG/DL (1.8-2.4)
[2025-01-14] MEDS ORDERED: HOME MED LIST COMPLETE! XX SCH (14:00)
[2025-01-14] MEDS ORDERED: ONDA-284 PO (14:12)
[2025-01-14 14:25] VITALS: BP 130/70; TEMP 97.5; O2SAT 97
== END 2025-01-14 14:32 | disposition home or self-care (01) ==
LOC: M ED 10:32
DX: G89.18 Other acute postprocedural pain (principal); R11.2 Nausea with vomiting, unspecified; F12.10 Cannabis abuse, uncomplicated; Z88.8 Allergy status to other drugs, medicaments and biological substances; Z79.51 Long term (current) use of inhaled steroids; Z79.899 Other long term (current) drug therapy
CPT/HCPCS: 80048; 80076; 83690; 83735; 85025; 96374; 96375; 99284; J1630; J1885; J2470

== ENCOUNTER → 2025-03-04 | Outpatient (CLI) | payer OTHER ==
[~2025-03-04] MED LIST changes: +ONDA-284 PO
== END ==
LOC: M WUC 11:02
PROVIDERS: ATTEND Nurse Practitioner Family
DX: M25.571 Pain in right ankle and joints of right foot (principal)

== ENCOUNTER → 2025-06-22 | Outpatient (REF) | payer OTHER ==
[~2025-06-22] MED LIST changes: -ESSE250T PO; -IBUP-1022 PO; +IBUP600T42 PO; +MAGN250T17 PO
[2025-06-22 18:02] LABS: Trichomonas vaginalis (AMP) NOT DETECTED (NEGATIVE)
[2025-06-22 19:44] LABS: GC DNA AMPLIFICATION NEGATIVE (NEGATIVE)
== END ==
LOC: M LAB REF 16:31
PROVIDERS: ATTEND Physician Assistant
DX: R30.0 Dysuria (principal)